=== PATIENT | male | born 1960 | race Caucasian/White ===

== ENCOUNTER 2017-02-15 10:14 | Outpatient (CLI) | payer OTHER | END 2017-02-15 10:15 | disposition home or self-care (01) | DX: E78.00 Pure hypercholesterolemia, unspecified (principal); R03.0 Elevated blood-pressure reading, without diagnosis of hypertension ==

== ENCOUNTER 2017-03-01 08:00 | Outpatient (CLI) | payer OTHER | END 2017-03-01 08:01 | disposition home or self-care (01) | DX: E78.2 Mixed hyperlipidemia (principal) ==

== ENCOUNTER 2017-05-10 08:03 | Outpatient (CLI) | payer OTHER ==
[2017-05-10 12:22] LABS: CHOL/HDL RATIO 5.6 (<5.0); CHOLESTEROL 156 mg/dL; HDL CHOLESTEROL 28 mg/dL; LDL/HDL RATIO 3.1 (<3.6); TRIGLYCERIDES 206 mg/dL; VLDL CHOLESTEROL 41 mg/dL
== END 2017-05-10 08:04 | disposition home or self-care (01) ==
LOC: LAB.F 08:03
PROVIDERS: ATTEND Internal Medicine
DX: E78.00 Pure hypercholesterolemia, unspecified (principal)
CPT/HCPCS: 36415; 80061; 84460

== ENCOUNTER 2017-10-17 14:16 | Outpatient (CLI) | payer OTHER ==
--- NOTE | 2017-10-22 11:05 | CARDIAC PROCEDURE NOTE ---
DATE OF SERVICE: 10/17/2017 PRIMARY CARE PROVIDER: Sienna Reynolds PA-C PROCEDURE: Stress echocardiogram. PROCEDURE SYMPTOMS: Chest pain experienced as tightness and burning throat and dyspnea on exertion. CARDIAC RISK FACTORS: Age, hypertension, and hyperlipidemia. No previous cardiac procedures. MEDICATIONS HELD: Metoprolol held for 3 doses by patient. CLINICAL HISTORY: A 57-year-old male without known coronary artery disease. INITIAL RESTING VITAL SIGNS: Blood pressure 144/96, heart rate 85, height 65 inches, weight 210 pounds, BMI 34.4. PROCEDURE AND FINDINGS: The patient's identity and date verified, consent signed. After resting echocardiogram images were obtained, the patient performed treadmill exercise using a Amadeo protocol, completing 9 minutes, 30 seconds and an estimated workload of 10.1 metabolic equivalents. Maximal blood pressure was 226/94 with a heart rate of 173 beats per minute or 106% of maximum predicted heart rate for age. The blood pressure response to exercise was abnormal due to extreme high blood pressure. The patient stopped because he rated exercise as very hard and target heart rate was achieved. The resting ECG demonstrated normal sinus rhythm with no abnormalities. There was 0.[address] segment depression and no ectopy. Post-exercise images were immediately obtained on cessation of exercise. FINAL IMPRESSION: 1. No ECG signs of ischemia, test incomplete, awaiting echocardiographic report. 2. Nondiagnostic stress test clinically for angina. The patient did have extremely dry-feeling throat and on his left side felt some pressure in his chest that was very mild. 3. No ectopy. 4. Hypertensive. TD: 10/18/2017 09:36 [facility]
== END 2017-10-17 14:17 | disposition home or self-care (01) ==
LOC: DI 14:16
PROVIDERS: ATTEND Physician Assistant Medical
DX: R94.31 Abnormal electrocardiogram [ECG] [EKG] (principal); I10 Essential (primary) hypertension; R07.89 Other chest pain; E78.5 Hyperlipidemia, unspecified
CPT/HCPCS: 93351

== ENCOUNTER 2018-03-28 06:01 | Day surgery (SDC) | payer OTHER ==
[2018-03-28] MEDS ORDERED: LACTATED RINGERS 1,000 ML IV ONE (07:17)
[2018-03-28] MEDS ORDERED: fentaNYL 250 MCG/5 ML VIAL IVP ONE (07:37)
[2018-03-28] MEDS ORDERED: MIDAZOLAM 2 MG/2 ML VIAL IVP ONE (07:37)
[2018-03-28 08:56] VITALS: BP 133/105
== END 2018-03-28 06:02 | disposition home or self-care (01) ==
LOC: SDS 06:01
PROVIDERS: ATTEND Surgery
PROC: 0DBP8ZX Excision of Rectum, Via Natural or Artificial Opening Endoscopic, Diagnostic (ICD-10-PCS; 2018-03-28)
PROC: 0DBM8ZX Excision of Descending Colon, Via Natural or Artificial Opening Endoscopic, Diagnostic (ICD-10-PCS; principal; 2018-03-28 07:30)
DX: Z12.11 Encounter for screening for malignant neoplasm of colon (principal); D12.4 Benign neoplasm of descending colon; D12.5 Benign neoplasm of sigmoid colon; K57.30 Diverticulosis of large intestine without perforation or abscess without bleeding; K64.8 Other hemorrhoids; K62.1 Rectal polyp; I10 Essential (primary) hypertension; K21.9 Gastro-esophageal reflux disease without esophagitis; Z79.82 Long term (current) use of aspirin
CPT/HCPCS: 45384; J3010; J7120

== ENCOUNTER 2018-07-02 08:33 | Outpatient (CLI) | payer OTHER ==
[2018-07-02 11:41] LABS: ALBUMIN 4.2 g/dL (3.2-5.5); ALBUMIN/GLOBULIN RATIO 1.6 (1.0-2.2); ALKALINE PHOSPHATASE 73 IU/L (42-121); ALT ALANINE AMINOTRANSFERASE 38 IU/L (10-60); AST ASPARTATE AMINOTRANSFERASE 31 IU/L (10-42); BILIRUBIN,TOTAL 1.2 mg/dL (0.2-1.0); BUN - BLOOD UREA NITROGEN 15 mg/dL (6-20); CALCIUM 8.8 mg/dL (8.5-10.3); CARBON DIOXIDE - CO2 24 mmol/L (21-32); CHLORIDE 104 mmol/L (101-111); CHOL/HDL RATIO 5.7 (<5.0); CHOLESTEROL 165 mg/dL; GFR - MDRD 77 (>89); GLUCOSE 101 mg/dL (70-100); HDL CHOLESTEROL 29 mg/dL; LDL CHOLESTEROL,CALCULATED 73 mg/dL; LDL/HDL RATIO 2.5 (<3.6); SODIUM 136 mmol/L (135-145); TOTAL PROTEIN 6.8 g/dL (6.7-8.2); VLDL CHOLESTEROL 63 mg/dL
== END 2018-07-02 08:34 | disposition home or self-care (01) ==
LOC: LAB.F 08:33
PROVIDERS: ATTEND Physician Assistant Medical
DX: I10 Essential (primary) hypertension (principal); E78.5 Hyperlipidemia, unspecified
CPT/HCPCS: 36415; 80053; 80061; 83721

== ENCOUNTER 2019-10-07 08:51 | Outpatient (CLI) | payer OTHER ==
[2019-10-07 17:08] LABS: BASOPHILS % (AUTO) 0.5 %; EOSINOPHILS # (AUTO) 0.4 10^3/uL (0.0-0.7); EOSINOPHILS % (AUTO) 6.4 %; HGB - HEMOGLOBIN 15.1 g/dL (14.0-18.0); LYMPHOCYTES # (AUTO) 1.4 10^3/uL (1.5-3.5); LYMPHOCYTES % (AUTO) 22.8 %; MEAN CORPUSCULAR HEMOGLOBIN 29.2 pg (27.0-31.0); MEAN CORPUSCULAR HGB CONC 33.4 g/dL (32.0-36.0); MEAN CORPUSCULAR VOLUME 87.4 fL (80.0-94.0); MEAN PLATELET VOLUME 11.2 fL (7.4-11.4); MONOCYTES # (AUTO) 0.6 10^3/uL (0.0-1.0); NEUTROPHILS # (AUTO) 3.8 10^3/uL (1.5-6.6); PLT - PLATELET COUNT 158 10^3/uL (130-450); RED BLOOD COUNT 5.17 10^6/uL (4.70-6.10); RED CELL DISTRIBUTION WIDTH 12.3 % (12.0-15.0); WHITE BLOOD COUNT 6.2 x10^3/uL (4.8-10.8)
[2019-10-07 18:03] LABS: ALBUMIN 4.3 g/dL (3.2-5.5); ALBUMIN/GLOBULIN RATIO 1.3 (1.0-2.2); ALKALINE PHOSPHATASE 92 IU/L (42-121); ALT ALANINE AMINOTRANSFERASE 49 IU/L (10-60); AST ASPARTATE AMINOTRANSFERASE 32 IU/L (10-42); BILIRUBIN,TOTAL 1.2 mg/dL (0.2-1.0); BUN - BLOOD UREA NITROGEN 18 mg/dL (6-20); CALCIUM 9.2 mg/dL (8.5-10.3); CARBON DIOXIDE - CO2 29 mmol/L (21-32); CHLORIDE 101 mmol/L (101-111); CHOL/HDL RATIO 8.2 (<5.0); CHOLESTEROL 246 mg/dL; GFR - MDRD 76 (>89); GLUCOSE 111 mg/dL (70-100); HDL CHOLESTEROL 30 mg/dL; SODIUM 137 mmol/L (135-145); TOTAL PROTEIN 7.5 g/dL (6.7-8.2)
[2019-10-07 18:37] LABS: LDL CHOLESTEROL,DIRECT 145 mg/dL; LDLD/HDL RATIO 4.8 (<3.6)
== END 2019-10-07 08:52 | disposition home or self-care (01) ==
LOC: LAB.S 08:51
PROVIDERS: ATTEND Physician Assistant Medical
DX: E78.5 Hyperlipidemia, unspecified (principal)
CPT/HCPCS: 36415; 80053; 80061; 83721; 85025

== ENCOUNTER 2021-05-30 12:32 | Emergency (ER) | payer OTHER ==
[2021-05-30] MEDS ORDERED: TETANUS/DIPHTHERIA/PERTUSSIS 0.5 ML SYRINGE IM ONE (13:02)
[2021-05-30] MEDS ORDERED: BUFFERED LIDOCAINE 10 ML SYRINGE SUBQ STA (13:02)
--- NOTE | 2021-05-30 13:03 | ED Physician Documentation ---
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 No other injuries. Tetanus is unknown. Review of Systems Constitutional: reports: Reviewed and negative Eyes: reports: Reviewed and negative Ears: reports: Reviewed and negative Nose: reports: Reviewed and negative PD PAST MEDICAL HISTORY - Past Medical History Past Medical History: Yes Cardiovascular: Hypertension, High cholesterol Respiratory: None Endocrine/Autoimmune: None GI: GERD, Colon polyps : None HEENT: None Psych: None Musculoskeletal: None Derm: None - Past Surgical History Past Surgical History: No General: Colonoscopy Ortho: Rotator cuff repair - Present Medications Home Medications: Ambulatory Orders Medication Instructions Recorded Confirmed HYDROcod/ACETAM 5/325 [Vicodin 1 - 2 ea PO Q6H PRN #15 tablet 05/03/13 5/325] Atorvastatin Calcium 40 mg PO DAILY 03/27/18 03/27/18 Metoprolol Succinate 25 mg PO DAILY 03/27/18 03/27/18 Pantoprazole [Protonix] 40 mg PO DAILY 03/27/18 03/27/18 Bacitracin Zinc Oint 1 applic TOP BID #1 gm 05/30/21 HYDROcod/ACETAM 5/325 [[place] 5/325] 1 - 2 tab PO Q6H PRN #7 tablet 05/30/21 - Allergies Allergies/Adverse Reactions: Allergies Allergy/AdvReac Type Severity Reaction Status Date / Time Egg Derived AdvReac Nausea Verified 05/30/21 12:41 - Social History Does the pt smoke?: No Smoking Status: Never smoker Does the pt drink ETOH?: No Does the pt have substance abuse?: No - Immunizations Immunizations are current?: No Immunizations: TDAP >10years/unknown PD ED PE NORMAL - Vitals Vital signs reviewed: Yes - General General: Alert and oriented X 3, No acute distress - Extremities Extremities: Other (Focused examination of the left small finger demonstrates that he has a laceration extending over the ulnar side of the tuft and then basically horizontally transects the nail and nailbed at the mid nail level. He has decreased sensation on the ulnar side but not the radial side of the tip ) - Neuro Neuro: Alert and oriented X 3, Normal speech Results - Vitals Vitals: Vital Signs - 24 hr 05/30/21 05/30/21 12:41 13:45 Temperature 36.5 C 97.6 C H Heart Rate 71 74 Respiratory 16 16 Rate Blood Pressure 132/102 H O2 Saturation 97 94 Oxygen O2 Source Room air - Rads (name of study) Left fifth finger x-ray was normal Radiology: EMP read contemporaneously Procedures - Laceration (location) L 5th finger Length in cm: 2 Wound type: Curved, Into subcut fat, Other (through nailbed) Neurovascular status: Motor intact Tendon involvement: Tendon intact Anesthesia: Lidocaine 1%, With bicarb Wound preparation: Irrigated copiously NS, Debrided extensively (distal fingernail removed bluntly) Skin layer closure: Other (nailbed closed with 3 x 5-0 vicryl interrupted and the skin on the ulnar side with 4 x 5-0 ethilon interrupted.) Other: Patient tolerated well, No complications, Neurovascular intact, Tetanus booster given Departure - Departure Disposition: Home, Self Care Clinical Impression: Nailbed laceration, finger, Laceration Condition: Good Record reviewed to determine appropriate education?: Yes Instructions: ED Laceration Hand Prescriptions: Bacitracin Zinc Oint 1 applic TOP BID #1 gm HYDROcod/ACETAM 5/325 [[place] 5/325] 1 - 2 tab PO Q6H PRN #7 tablet PRN Reason: Pain Comments: You can remove the dressing and wash it with soap and water as needed. Then blot it dry and apply the antibiotic ointment. Then apply a nonstick dressing such as "Telfa." And a wrap available at your pharmacy. Elevate. Sutures need to come out in about 2 weeks, at least a black ones on the side of the finger. Again the white fleshy colored sutures in the nailbed will dissolve on their own. You can follow-up with your doctor in 2 weeks for suture removal, and ideally also in 3 to 4 days for a wound check. Forms: Activity restrictions Discharge Date/Time: 05/30/21 14:17
[2021-05-30 13:46] VITALS: BP 132/102
--- NOTE | 2021-05-30 13:58 | XRAY Report ---
PROCEDURE: Finger(s) LT INDICATIONS: finger inj TECHNIQUE: AP hand, 2 views of the fifth digit acquired. COMPARISON: None. FINDINGS: Bones: No fractures or dislocations. No suspicious bony lesions. Soft tissues: No suspicious soft tissue calcifications. IMPRESSION: 1. No fracture or dislocation. Reviewed by: Ronen Lindsay MD on 05/30/2021 1:57 PM PDT Approved by: Ronen Lindsay MD on 05/30/2021 1:57 PM PDT Station ID: [id number]
== END 2021-05-30 14:17 | disposition home or self-care (01) ==
LOC: ED 12:32
DX: S61.317A Laceration without foreign body of left little finger with damage to nail, initial encounter (principal); W45.8XXA Other foreign body or object entering through skin, initial encounter; W22.8XXA Striking against or struck by other objects, initial encounter; Y93.89 Activity, other specified; Y99.0 Civilian activity done for income or pay
CPT/HCPCS: 12001; 90471; 99282; 99283

== ENCOUNTER 2021-08-28 10:00 | Outpatient (CLI) | payer OTHER ==
[2021-08-28 15:09] LABS: BILIRUBIN,URINE NEGATIVE (NEGATIVE); GLUCOSE, URINE (UA) NEGATIVE (NEGATIVE); KETONES,URINE (UA) NEGATIVE (NEGATIVE); LEUKOCYTE ESTERASE, URINE NEGATIVE (NEGATIVE); NITRITE,URINE NEGATIVE (NEGATIVE); OCCULT BLOOD,URINE LARGE (NEGATIVE); PROTEIN,URINE 30 mg/dL (NEGATIVE); UROBILINOGEN,URINE 0.2 (NORMAL) E.U./dL (NORMAL)
[2021-08-28 15:12] LABS: CLARITY,URINE CLEAR (CLEAR)
[2021-08-28 16:44] LABS: BACTERIA,URINE Few /HPF (None Seen); SQUAMOUS EPITHELIAL CELL,UR RARE Squamous (<= Few); WBC,URINE 0-3 /HPF (0-3)
[2021-08-28 16:45] LABS: CASTS, URINE 0-2 RBC Casts /LPF; YEAST,URINE PRESENT
== END 2021-08-28 23:59 | disposition home or self-care (01) ==
LOC: LAB.S 10:00
PROVIDERS: ATTEND Emergency Medicine
DX: N39.0 Urinary tract infection, site not specified (principal)
CPT/HCPCS: 81001; 87086

== ENCOUNTER 2021-11-15 02:21 | Outpatient (CLI) | payer OTHER | END 2021-11-15 02:22 | disposition critical access hospital (66) | LOC: EMS 02:21 | DX: R10.32 Left lower quadrant pain (principal) | CPT/HCPCS: A0425; A0427 ==

== ENCOUNTER 2021-11-15 02:55 | Inpatient (IN) | payer OTHER ==
[2021-11-15] MEDS ORDERED: SODIUM CHLORIDE 0.9% 1,000 ML IV STA ×2 (03:11→05:27)
[2021-11-15 03:39] LABS: BASOPHILS % (AUTO) 0.3 %; EOSINOPHILS # (AUTO) 0.2 10^3/uL (0.0-0.7); EOSINOPHILS % (AUTO) 1.4 %; HCT - HEMATOCRIT 38.7 % (42.0-52.0); HGB - HEMOGLOBIN 13.6 g/dL (14.0-18.0); LYMPHOCYTES % (AUTO) 7.4 %; MEAN CORPUSCULAR HEMOGLOBIN 30.3 pg (27.0-31.0); MEAN CORPUSCULAR HGB CONC 35.1 g/dL (32.0-36.0); MEAN CORPUSCULAR VOLUME 86.2 fL (80.0-94.0); MEAN PLATELET VOLUME 10.3 fL (7.4-11.4); MONOCYTES # (AUTO) 0.6 10^3/uL (0.0-1.0); MONOCYTES % (AUTO) 4.7 %; NEUTROPHILS # (AUTO) 11.4 10^3/uL (1.5-6.6); NEUTROPHILS % (AUTO) 85.9 %; PLT - PLATELET COUNT 147 10^3/uL (130-450); RED BLOOD COUNT 4.49 10^6/uL (4.70-6.10); RED CELL DISTRIBUTION WIDTH 11.9 % (12.0-15.0); WHITE BLOOD COUNT 13.3 x10^3/uL (4.8-10.8)
[2021-11-15 03:48] LABS: ALBUMIN 3.8 g/dL (3.2-5.5); ALBUMIN/GLOBULIN RATIO 1.3 (1.0-2.2); BILIRUBIN,TOTAL 1.1 mg/dL (0.2-1.0); CALCIUM 8.8 mg/dL (8.5-10.3); CREATININE 1.1 mg/dL (0.6-1.2); POTASSIUM 4.2 mmol/L (3.5-5.0); TOTAL PROTEIN 6.8 g/dL (6.7-8.2)
[2021-11-15 04:00] LABS: BILIRUBIN,URINE NEGATIVE (NEGATIVE); GLUCOSE, URINE (UA) NEGATIVE (NEGATIVE); KETONES,URINE (UA) NEGATIVE (NEGATIVE); LEUKOCYTE ESTERASE, URINE NEGATIVE (NEGATIVE); NITRITE,URINE NEGATIVE (NEGATIVE); OCCULT BLOOD,URINE SMALL (NEGATIVE); PH,URINE 5.5 PH (5.0-7.5); PROTEIN,URINE 30 mg/dL (NEGATIVE); UROBILINOGEN,URINE 0.2 (NORMAL) E.U./dL (NORMAL)
[2021-11-15] MEDS ORDERED: MORPHINE 2 MG/ML CARPUJECT IVP STA (04:07)
[2021-11-15] MEDS ORDERED: iohexoL-300 100 ML VIAL ONE (04:19)
[2021-11-15 04:25] LABS: CLARITY,URINE CLEAR (CLEAR)
[2021-11-15 04:26] LABS: BACTERIA,URINE None Seen /HPF (None Seen); RBC,URINE 0-5 /HPF (0-5); SQUAMOUS EPITHELIAL CELL,UR RARE Squamous (<= Few); WBC,URINE 0-3 /HPF (0-3)
[2021-11-15] MEDS ORDERED: iohexoL-300 100 ML VIAL IVP ONE (04:53)
[2021-11-15] MEDS ORDERED: PIPERACILLIN/TAZOBACTAM 3.375 GM in SODIUM CHLORIDE 0.9% MINIBAG 100 ML IV STA (05:19)
[2021-11-15] MEDS ORDERED: HYDROmorphone 1 MG/ML CARPUJECT IVP STA (05:30)
--- NOTE | 2021-11-15 05:33 | ED Physician Documentation ---
History of Present Illness - Stated complaint Stated Complaint: ABD PX - Chief complaint Chief Complaint: Abd Pain - History obtained from History obtained from: Patient - Additonal information Additional information: 61yM with pmh renal stones p/w sudden onset LLQ pain radiating to suprapubic region starting this past evening, sharp, 10/10 at onset, improving to 3/10 s/p 100 of fentanyl IV by EMS en route. patient denies fever, diarrhea, back pain, urinary sx. his pain was brought on immediately after having a BM. Review of Systems Ten Systems: 10 systems reviewed and negative Constitutional: denies: Fever, Chills GI: reports: Abdominal Pain. denies: Nausea, Vomiting, Constipation, Diarrhea, Bloody / black stool : denies: Dysuria, Frequency Musculoskeletal: denies: Back pain PD PAST MEDICAL HISTORY - Past Medical History Past Medical History: Yes Cardiovascular: Hypertension, High cholesterol Respiratory: None Neuro: None Endocrine/Autoimmune: None GI: GERD, Colon polyps : None HEENT: None Psych: None Musculoskeletal: None Derm: None - Past Surgical History Past Surgical History: Yes General: Colonoscopy Ortho: Rotator cuff repair - Present Medications Home Medications: Ambulatory Orders Medication Instructions Recorded Confirmed No Known Home Medications 11/15/21 11/15/21 - Allergies Allergies/Adverse Reactions: Allergies Allergy/AdvReac Type Severity Reaction Status Date / Time Egg Derived AdvReac Nausea Verified 05/30/21 12:41 - Social History Does the pt smoke?: No Smoking Status: Never smoker Does the pt drink ETOH?: No Does the pt have substance abuse?: No - Immunizations Immunizations are current?: No Immunizations: TDAP >10years/unknown - POLST Patient has POLST: No PD ED PE NORMAL - Vitals Vital signs reviewed: Yes - General General: Alert and oriented X 3, No acute distress, Well developed/nourished - HEENT HEENT: Atraumatic, PERRL, EOMI - Neck Neck: Supple, no meningeal sign - Cardiac Cardiac: RRR - Respiratory Respiratory: No respiratory distress, Clear bilaterally - Abdomen Abdomen: Other (ttp LLQ) - Back Back: No CVA TTP - Derm Derm: Normal color, Warm and dry - Extremities Extremities: No deformity - Neuro Neuro: Alert and oriented X 3, No motor deficit, No sensory deficit - Psych Psych: Normal mood, Normal affect Results - Vitals Vitals: Vital Signs - 24 hr 11/15/21 11/15/21 11/15/21 03:00 04:20 04:51 Temperature 36.1 C L Heart Rate 83 81 85 Respiratory 18 16 15 Rate Blood Pressure 125/90 H 143/93 H 140/96 H O2 Saturation 95 99 95 11/15/21 05:43 Temperature 37.1 C Heart Rate 82 Respiratory 16 Rate Blood Pressure 137/95 H O2 Saturation 96 Oxygen O2 Source Room air - Labs Labs: Laboratory Tests 11/15/21 11/15/21 11/15/21 03:31 03:31 03:40 WBC 13.3 H RBC 4.49 L Hgb 13.6 L Hct 38.7 L MCV 86.2 MCH 30.3 MCHC 35.1 RDW 11.9 L Plt Count 147 MPV 10.3 Neut # (Auto) 11.4 H Lymph # (Auto) 1.0 L Loving # (Auto) 0.6 Eos # (Auto) 0.2 Baso # (Auto) 0.0 Absolute Nucleated RBC 0.00 Nucleated RBC % 0.0 Sodium 136 Potassium 4.2 Chloride 102 Carbon Dioxide 24 Anion Gap 10.0 BUN 15 Creatinine 1.1 Estimated GFR (MDRD) 68 L Glucose 197 H Calcium 8.8 Total Bilirubin 1.1 H AST 22 ALT 34 Alkaline Phosphatase 60 Total Protein 6.8 Albumin 3.8 Globulin 3.0 Albumin/Globulin Ratio 1.3 Lipase 32 Urine Color YELLOW Urine Clarity CLEAR Urine pH 5.5 Ur Specific [place] 1.025 Urine Protein 30 H Urine Glucose (UA) NEGATIVE Urine Ketones NEGATIVE Urine Occult Blood SMALL H Urine Nitrite NEGATIVE Urine Bilirubin NEGATIVE Urine Urobilinogen 0.2 (NORMAL) Ur Leukocyte Esterase NEGATIVE Urine RBC 0-5 Urine WBC 0-3 Ur Squamous Epith Cells RARE Squamous Urine Bacteria None Seen Ur Microscopic Review INDICATED Urine Culture Comments NOT INDICATED PD MEDICAL DECISION MAKING - ED course ED course: patient with diverticulitis with microperforaton and free fluid in LLQ. d/w surgeon correctional nurse Dr. Jayashree Lam who will come evaluate. Dr. Lam recommending medical admission with surgery consulting in. d/w Dr. Topete for admission. Departure - Departure Disposition: 66 [facility] DC/Xfer Clinical Impression: Diverticulitis, Free fluid in pelvis, Free intraperitoneal air Condition: Stable
[2021-11-15] MEDS ORDERED: LACTATED RINGERS 1,000 ML IV SCH (07:00)
--- NOTE | 2021-11-15 07:06 | CONSULTATION NOTE ---
Referring Provider Consult Date: 11/15/21 Chief Complaint - Chief Complaint Chief Complaint: abdominal pain History of Present Illness - History of Present Illness HPI Comment/Other: Pt is a 61 yo M with hx HTN, HLD, colon polyps who presents with abdominal pain for last day. Reports was at work yesterday and felt a twinge in L lower abdomen; believed he had bumped it on something. At ~1:30 am this morning pt wilfred to have BM which was normal but exacerbated his pain severely, prompting presentation. Pain started in LLQ, extends like a band to RLQ. Some assx nausea and light headedness when pain first was exacerbated. He has never had similar episodes in the past. Of note, pt has had multiple colonoscopies, each finding some polyps, per pt these were never cancerous; believes he is due for a scope in the next couple of years (gets them every 5 yrs). In ED pt is feeling slightly better. He is afebrile, HDS. WBC 13; BG 190s; otherwise ok. CT showing thickened sigmoid with small foci of free air and fluid, no abscess. History - Past Medical History Cardiovascular: reports: Hypertension, High cholesterol Respiratory: reports: None Neuro: reports: None Endocrine/Autoimmune: reports: None GI: reports: GERD, Colon polyps : reports: None HEENT: reports: None Psych: reports: None Musculoskeletal: reports: None Derm: reports: None MRSA Hx?: No - Past Surgical History General: reports: Colonoscopy (multiple polyps found), Other (open inguinal hernia repair) Ortho: reports: Rotator cuff repair - Family & Social History Family History: Sister: Cancer (breast [place]) Living arrangement: At home Living Situation: With spouse/s.o. - Substance History Use: Uses substance without health or social issues: NONE - POLST Patient has POLST: No Meds/Allgy - Home Medications Home Medications: Ambulatory Orders Medication Instructions Recorded Confirmed No Known Home Medications 11/15/21 11/15/21 - Allergies Allergies/Adverse Reactions: Allergies Allergy/AdvReac Type Severity Reaction Status Date / Time Egg Derived AdvReac Nausea Verified 05/30/21 12:41 Review of Systems - Constitutional Constitutional: denies: Fever - Gastrointestinal Gastrointestinal: reports: Abdominal pain. denies: Black stools, Bloody stools - All Other Systems All Other Systems: reports: Reviewed and negative Exam - Vital Signs Reviewed Vital Signs: Yes Vital Signs: Vital Signs x48h Temp Pulse Resp BP Pulse Ox 11/15/21 06:33 84 15 139/98 H 96 11/15/21 05:43 37.1 C 82 16 137/95 H 96 11/15/21 04:51 85 15 140/96 H 95 11/15/21 04:20 81 16 143/93 H 99 11/15/21 03:00 36.1 C L 83 18 125/90 H 95 - Physical Exam General Appearance: positive: No acute distress, Alert Eyes Bilateral: positive: EOMI ENT: positive: No signs of dehydration Respiratory: positive: No respiratory distress Cardiovascular: positive: Regular rate & rhythm Abdomen: positive: Other (obese, soft, mildly distended, moderate TTP in LLQ; some TTP in RLQ referred to LLQ, rest of abdomen soft and non-tender, no rebound or guarding) Rectal: positive: Non-tender, Other (small amt soft brown stool on glove, no blood) Skin: positive: No rash, Warm, Dry Extremities: positive: No pedal edema Neurologic/Psychiatric: positive: Oriented x3, Mood/affect nml Conclusion/Plan - Lab Results Fish Bones: 11/15/21 03:31 11/15/21 03:31 - Diagnostic Imaging Results Diagnostic Imaging Results: positive: See rad report Diagnostic Imaging Results Comments: thickened sigmoid colon with small foci of free air and small amt of fluid - Other Other Results/Comments: 53 yo M with hx HTN, HLD, colon polyps presents with perforated diverticulitis. HDS, exam with focal TTP but not henrry peritonitis; WBC 13, BG 190s otherwise labs ok. Will attempt non-operative management. - admit to Medicine with surgical consultation - NPO/IVF - IV pain meds - broad abx (favor zosyn) - serial exams - discussed with patient that if he worsens (pain, sepsis, etc.) or fails to improve this would be considered a failure of non-op management and he may require surgical intervention, likely a Danica's procedure; if develops abscess may require drainage in futures - rest per Medicine Marcel Lam MD General Surgery
[2021-11-15] MEDS ORDERED: ACETAMINOPHEN 325 MG TABLET PO PRN (07:27)
[2021-11-15] MEDS ORDERED: MORPHINE 2 MG/ML CARPUJECT IVP PRN (07:27)
[2021-11-15] MEDS ORDERED: ONDANSETRON 4 MG/2 ML VIAL IVP PRN (07:27)
--- NOTE | 2021-11-15 07:35 | HISTORY & PHYSICAL EXAMINATION ---
Chief Complaint - Chief Complaint Chief Complaint: LLQ abdominal pain History of Present Illness - Admitted From Admitted From:: medical floor - History Obtained From Records Reviewed: [facility], ER notes History obtained from: pt Exam Limitations: no - History of Present Illness HPI Comment/Other: this a 61-yrs old male with a past medical history significant for HTN, HLD, colon polyps, kidney stones who presents ER to complain of abdominal pain. Pt arrives via EMS. He report he felt some discomfort on his low quadrant abdomen on yesterday afternoon when he was at work. On today [employer], he felt his abdominal pain severe after he had a bowel movement. he report he almost passed out because of pain. Then he sit at the floor but he had no fall and no injury. he Reports diaphoresis, nausea, and light headedness with abdominal pain without vomiting. He reported his abdominal pain mainly located at the left lower quadrant. He denies fever, chest pain, shortness of breath. After Pt was given 50mcg fentanyl X 2 en route to hospital, and given pain medication at ER, he felt his pain was reduced. Preliminary CT of abdomen/pelvis reveals Sigmoid Diverticulitis with microperforation and reactive inflammation change with a trace reactive free fluid, negative for abscess at this junction. Surgeon was consulted and recommended Medical management with NPO, IV fluids, pain control, and recommended Zosyn antibiotics. Given above medical conditions, Medical team was consulted for admission. discussed the care goal with pt, pt hope to have full code History - Past Medical History Cardiovascular: reports: Hypertension, High cholesterol Respiratory: reports: None Neuro: reports: None Endocrine/Autoimmune: reports: None GI: reports: GERD, Colon polyps : reports: None HEENT: reports: None Psych: reports: None Musculoskeletal: reports: None Derm: reports: None MRSA Hx?: No - Past Surgical History General: reports: Colonoscopy (multiple polyps found), Other (open inguinal hernia repair) Ortho: reports: Rotator cuff repair - Family & Social History Family History: Sister: Cancer (breast [place]) Family History Comment/Other: Patient report his mother at age 77 from stroke. His father is 83, lively, had pacemaker for bradycardia. Living arrangement: At home Living Situation: With spouse/s.o. Social History Notes: Patient denying history of cigarette smoking, alcohol or drug use - Substance History Use: Uses substance without health or social issues: NONE - POLST Patient has POLST: No Meds/Allgy - Home Medications Home Medications: Ambulatory Orders Medication Instructions Recorded Confirmed No Known Home Medications 11/15/21 11/15/21 - Allergies Allergies/Adverse Reactions: Allergies Allergy/AdvReac Type Severity Reaction Status Date / Time Egg Derived AdvReac Nausea Verified 05/30/21 12:41 Review of Systems - Constitutional Constitutional: reports: Diaphoresis. denies: Fever, Chills - Eyes Eyes: denies: Pain - Ears, Nose & Throat Ears, Nose & Throat: denies: Nosebleeds - Cardiovascular Cariovascular: reports: Lightheadedness. denies: Palpitations, Chest pain, Syncope, Exertional dyspnea, Decr. exercise tolerance - Respiratory Respiratory: denies: Cough, Wheezing, SOB at rest, SOB with exertion - Gastrointestinal Gastrointestinal: reports: Abdominal pain, Nausea. denies: Diarrhea, Vomiting - Genitourinary Genitourinary: denies: Dysuria - Musculoskeletal Musculoskeletal: denies: Muscle pain - Neurological Neurological: denies: Focal weakness, Dizziness, Numbness, Abnormal gait, Seizures, Incoordination, Slurred speech - Psychiatric Psychiatric: denies: Depression Exam - Vital Signs Vital Signs: Vital Signs x48h Temp Pulse Resp BP Pulse Ox 11/15/21 06:33 84 15 139/98 H 96 11/15/21 05:43 37.1 C 82 16 137/95 H 96 11/15/21 04:51 85 15 140/96 H 95 11/15/21 04:20 81 16 143/93 H 99 11/15/21 03:00 36.1 C L 83 18 125/90 H 95 - Physical Exam General Appearance: positive: No acute distress, Alert. negative: Lethargic Eyes Bilateral: positive: Normal inspection, No lid inflammation ENT: positive: ENT inspection nml Neck: positive: Nml inspection, Trachea midline. negative: Tracheal deviation Respiratory: positive: Chest non-tender, No respiratory distress, Breath sounds nml. negative: Wheezes Cardiovascular: positive: Regular rate & rhythm. negative: Tachycardia, Bradycardia, Systolic murmur Peripheral Pulses: positive: 2+ Abdomen: positive: Nml bowel sounds, No distention, Tenderness Back: positive: Nml inspection Skin: positive: Color nml, Warm, Dry. negative: Cyanosis Extremities: positive: Non-tender, Full ROM, Nml appearance Neurologic/Psychiatric: positive: Oriented x3, Motor nml, Sensation nml. negative: Weakness, Sensory loss, Facial droop, Slurred/abnml speech, Depressed mood/affect Conclusion/Plan - Problem List (1) Diverticulitis Conclusion/Plan: pt report LLQ abdominal pain. Preliminary CT of abdomen/pelvis reveals Sigmoid Diverticulitis with microperforation and reactive inflammation change with a trace reactive free fluid, negative for abscess at this junction. lab show elevated WBC at 13. surgeon was consulted. pt has afebrile, hemodynamic stable now. plan: NPO, IVF, antibiotics Zosyn, pain control, closely vital and lab monitor. blood culture is pending, continue consulting with surgeon, followup with image study as needed per prognosis. - Lab Results Fish Bones: 11/15/21 03:31 11/15/21 03:31 Core Measures - Anticipated LOS I expect patient to be DC'd or transferred within 96 hours.: Yes - DVT/VTE - Prophylaxis VTE/DVT Device ordered at admit?: Yes VTE/DVT Prophylaxis med ordered at admit?: Yes
[2021-11-15 08:12] LABS: B. PARAPERTUSSIS- RESP PCR PAN NOT DETECTED; B. PERTUSSIS- RESP PCR PANEL NOT DETECTED; C. PNEUMONIAE- RESP PCR PANEL NOT DETECTED; CORONAVIRUS 229E-RESP PCR NOT DETECTED; CORONAVIRUS HKU1-RESP PCR NOT DETECTED; CORONAVIRUS NL63-RESP PCR NOT DETECTED; CORONAVIRUS OC43-RESP PCR NOT DETECTED; HUMAN METAPNEUMOVIRUS NOT DETECTED; INFLUENZA A- RESP PCR PANEL NOT DETECTED; INFLUENZA B - RESP PCR PANEL NOT DETECTED; M. PNEUMONIAE- RESP PCR PANEL NOT DETECTED; PARAINFLUENZA VIRUS 1 NOT DETECTED; PARAINFLUENZA VIRUS 2 NOT DETECTED; PARAINFLUENZA VIRUS 3 NOT DETECTED; PARAINFLUENZA VIRUS 4 NOT DETECTED; RHINOVIRUS/ENTEROVIRUS NOT DETECTED; RSV- RESP PCR PANEL NOT DETECTED; SARS-CoV-2 -RESP PCR PANEL NOT DETECTED
--- NOTE | 2021-11-15 08:46 | CT Report ---
PROCEDURE: Abdomen/Pelvis W INDICATIONS: sudden sharp intermit LLQ pain, hx kid stones CONTRAST: IV CONTRAST: Isovue 300 ml: 100 PO CONTRAST: *NO PO CONTRAST TECHNIQUE: After the administration of intravenous contrast, 5 mm thick sections acquired from the diaphragms to the symphysis. 5 mm thick coronal and sagittal reformats were acquired. For radiation dose reducti on, the following was used: automated exposure control, adjustment of mA and/or kV according to anid ent size. COMPARISON: None. FINDINGS: Inferior chest: No focal consolidation, pleural effusion, or pneumothorax. No cardiomegaly or perica rdial effusion. Small hiatal hernia. Gallbladder: The gallbladder is distended with a smooth thin wall. Biliary tree: No intra-or extrahepatic biliary ductal dilatation. Liver: The liver demonstrates normal enhancement, size, and contour. Decreased attenuation, which may reflect hepatic steatosis. Scattered hypoattenuating lesions are seen throughout the liver, measurin g up to 1.5 cm, which may reflect cysts. Spleen: Normal enhancement, size and morphology is seen. Pancreas: No contour deforming mass or inflammatory change. Adrenals: Normal size without masses. Kidneys/ureters: Normal size and morphology. No solid masses or hydronephrosis. Vasculature: No evidence of aneurysm or other significant vascular pathology. Lymphatic system: No pathologic enlargement by size criteria. GI/mesentery: No evidence of intestinal obstruction. Descending/sigmoid diverticulosis with a segment of wall thickening and inflammatory change in the sigmoid colon, compatible with acute diverticuliti s. Small foci of free intraperitoneal gas are seen, compatible with microperforation. Peritoneum/Retroperitoneum: No drainable collection. Urinary bladder: The urinary bladder is distended with a smooth thin wall. Pelvic organs: Enlargement of the prostate measuring 4.9 cm in transverse dimension. Bones/soft tissues: Multifocal degenerative change. IMPRESSION: 1.Acute sigmoid diverticulitis with microperforation as detailed above. Concordant interpretation with the preliminary report. Reviewed by: Edmundo Ragland MD on 11/15/2021 8:[address] [facility] Approved by: Edmundo Ragland MD on 11/15/2021 8:[address] [facility] Station ID: [id number]
[2021-11-15] MEDS ORDERED: ENOXAPARIN 40 MG/0.4 ML SYRINGE SUBQ ONE (09:00)
[2021-11-15] MEDS: HYDROmorphone 1 MG/ML CARPUJECT IVP PRN ×3 (09:15→21:39)
[2021-11-15] MEDS ORDERED: PIPERACILLIN/TAZOBACTAM 3.375 GM in SODIUM CHLORIDE 0.9% MINIBAG 100 ML IV ONE (09:30)
[2021-11-15] MEDS: PIPERACILLIN/TAZOBACTAM 3.375 GM in SODIUM CHLORIDE 0.9% MINIBAG 100 ML IV SCH ×4 (10:17→18:48)
[2021-11-15] MEDS: SODIUM CHLORIDE FLUSH 0.9% 10 ML SYRINGE IVP SCH ×2 (10:24→14:43)
[2021-11-15] MEDS: SODIUM CHLORIDE 0.9% 1,000 ML IV SCH (14:47)
[2021-11-15] MEDS: SODIUM CHLORIDE FLUSH 0.9% 10 ML SYRINGE IVP PRN (21:39)
[2021-11-16] MEDS: SODIUM CHLORIDE 0.9% 1,000 ML IV SCH ×3 (00:11→21:57)
[2021-11-16] MEDS: SODIUM CHLORIDE FLUSH 0.9% 10 ML SYRINGE IVP SCH ×4 (01:17→23:27)
[2021-11-16] MEDS: PIPERACILLIN/TAZOBACTAM 3.375 GM in SODIUM CHLORIDE 0.9% MINIBAG 100 ML IV SCH ×3 (02:17→18:51)
[2021-11-16] MEDS: HYDROmorphone 1 MG/ML CARPUJECT IVP PRN ×5 (03:47→22:01)
[2021-11-16 06:40] LABS: BASOPHILS % (AUTO) 0.2 %; EOSINOPHILS # (AUTO) 0.1 10^3/uL (0.0-0.7); EOSINOPHILS % (AUTO) 0.5 %; HCT - HEMATOCRIT 35.8 % (42.0-52.0); HGB - HEMOGLOBIN 12.3 g/dL (14.0-18.0); LYMPHOCYTES # (AUTO) 1.1 10^3/uL (1.5-3.5); LYMPHOCYTES % (AUTO) 10.8 %; MEAN CORPUSCULAR HEMOGLOBIN 30.4 pg (27.0-31.0); MEAN CORPUSCULAR HGB CONC 34.4 g/dL (32.0-36.0); MEAN CORPUSCULAR VOLUME 88.6 fL (80.0-94.0); MEAN PLATELET VOLUME 11.1 fL (7.4-11.4); MONOCYTES # (AUTO) 0.6 10^3/uL (0.0-1.0); MONOCYTES % (AUTO) 5.6 %; NEUTROPHILS # (AUTO) 8.2 10^3/uL (1.5-6.6); NEUTROPHILS % (AUTO) 82.5 %; PLT - PLATELET COUNT 132 10^3/uL (130-450); RED BLOOD COUNT 4.04 10^6/uL (4.70-6.10); RED CELL DISTRIBUTION WIDTH 12.1 % (12.0-15.0)
[2021-11-16 06:45] LABS: CALCIUM 8.1 mg/dL (8.5-10.3); POTASSIUM 3.7 mmol/L (3.5-5.0)
[2021-11-16] MEDS ORDERED: D5.45NS W/20 MEQ KCL 1,000 ML IV SCH (08:00)
[2021-11-16] MEDS: ENOXAPARIN 40 MG/0.4 ML SYRINGE SUBQ SCH (08:22)
--- NOTE | 2021-11-16 08:25 | PROVIDER PROGRESS NOTE ---
Subjective - General Admit Date: 11/15/21 - Review of Systems General: positive: No symptoms. negative: Fever HEENT: positive: Headaches Pulmonary: positive: No symptoms Cardiovascular: positive: No symptoms Gastrointestinal: positive: Abdominal pain, Flatus Genitourinary: positive: No symptoms All Other Systems: positive: Reviewed and negative - Other Other Information/Narrative: Mr. Jose sierra says he is feeling worse today. He said yesterday was a good day and he went to sleep without taking much pain medicine. Now he feels like he is about to have a bowel movement and the pain is significantly worse. His white count is down this morning. He has been afebrile. He has been passing small amounts of flatus.That he does not generally have difficulty with constipation but that over the last couple of years he has been more constipated than he has in the past. He does have a history of colon polyps and feels that he is probably due for his colonoscopy. He tells me he would do anything not to go through this experience again. Objective - Patient Data Reviewed Vital Signs: Yes Vital Signs: Vital Signs x48h Temp Pulse Resp BP Pulse Ox 11/16/21 08:00 36.8 C 84 18 132/85 H 94 Weight: Weight 11/14/21 11/15/21 11/16/21 23:59 23:59 23:59 Weight (kg) 97 kg Intake & Output: Intake and Output Totals x24h 11/14/21 11/15/21 11/16/21 23:59 23:59 23:59 Intake Total 3646.673 256.667 Output Total 1100 550 Balance 2546.673 -293.333 - Lab Results Lab Results: 11/16/21 06:06 11/16/21 06:06 Other Lab Results: Lab Results x24hrs 11/16/21 11/16/21 Range/Units 06:06 06:06 WBC 10.0 (4.8-10.8) x10^3/uL RBC 4.04 L (4.70-6.10) 10^6/uL Hgb 12.3 L (14.0-18.0) g/dL Hct 35.8 L (42.0-52.0) % MCV 88.6 (80.0-94.0) fL MCH 30.4 (27.0-31.0) pg MCHC 34.4 (32.0-36.0) g/dL RDW 12.1 (12.0-15.0) % Plt Count 132 (130-450) 10^3/uL MPV 11.1 (7.4-11.4) fL Neut # (Auto) 8.2 H (1.5-6.6) 10^3/uL Lymph # (Auto) 1.1 L (1.5-3.5) 10^3/uL [place] # (Auto) 0.6 (0.0-1.0) 10^3/uL Eos # (Auto) 0.1 (0.0-0.7) 10^3/uL Baso # (Auto) 0.0 (0.0-0.1) 10^3/uL Absolute Nucleated RBC 0.00 x10^3/uL Nucleated RBC % 0.0 /100WBC Sodium 137 (135-145) mmol/L Potassium 3.7 (3.5-5.0) mmol/L Chloride 103 (101-111) mmol/L Carbon Dioxide 25 (21-32) mmol/L Anion Gap 9.0 (6-13) BUN 14 (6-20) mg/dL Creatinine 1.0 (0.6-1.2) mg/dL Estimated GFR (MDRD) 76 L (>89) Glucose 111 H (70-100) mg/dL Calcium 8.1 L (8.5-10.3) mg/dL - Current Medications Current Medications: Current Medications Generic Name Dose Route Start Last Admin Trade Name Freq PRN Reason Stop Dose Admin Hydromorphone HCl 1 mg 11/15/21 06:53 11/16/21 03:47 Hydromorphone 1 Mg/Ml Carpuject IVP 1 mg Q2HR PRN Administration PAIN Piperacillin Sod/Tazobactam 100 mls @ 25 mls/hr 11/15/21 18:00 11/16/21 06:17 Sod 3.375 gm/ Sodium Chloride IV Infused Q8H NAUN Infusion Sodium Chloride 10 ml 11/15/21 07:27 11/15/21 21:39 Sodium Chloride Flush 0.9% 10 Ml Syringe IVP 10 ml PRN PRN Administration NEEDED PER PROVIDER ORDERS Sodium Chloride 10 ml 11/15/21 09:00 11/16/21 01:17 Sodium Chloride Flush 0.9% 10 Ml Syringe IVP Not Given 0100,0900,1700 NAUN - Physical Exam Abdomen: positive: Tenderness, Guarding, Other (His abdomen is mildly distended. He does have some guarding in the left lower quadrant but no true rebound.). negative: Rebound Back: positive: Nml inspection Skin: positive: Color nml ABX Reporting Has patient been on IV antibiotics over the past 48 hours?: Yes Impression/Plan - Problem List Problem List: Perforated diverticulitis in the setting of a gentleman with health problems that are relatively well managed. Other than the increase in pain today, he appears to be making good progress. If he has a bowel movement today, we can advance his diet. Hopefully he will continue to go in the right direction. Assuming he does, he will need a colonoscopy in 6 to 8 weeks.If not, we can always reconsider surgical options.
--- NOTE | 2021-11-16 09:21 | PHARMACY PROGRESS NOTE ---
- Best Possible Medication History Admit Date and Time: 11/15/21 0650 Processed by: Nursing Medication History completed: Yes Patient Interview: Completed As the person ultimately responsible for medication therapy, providers are able to order a medication from an existing home medication list in [facility] via the "Reconcile Routine" prior to Confirmation of that medication by support clerk. Such practice is discouraged except when the physician, in their clinical judg ment, deems that a medical need exists for a medication without regard to previous use.
--- NOTE | 2021-11-16 13:54 | PROVIDER PROGRESS NOTE ---
Assessment/Plan - Problem List (1) Diverticulitis Assessment/Plan: 11/16 pt report he still has abdominal LLQ pain but pain is reduced, he feel he will have bowel movement but has no bowel movement yet. he is comfortable rest in the bed. he has no fever. continue NPO, IVF, glucose check, pain control, and IV of Zosyn, surgeon is on the board consulting for pt. pt report LLQ abdominal pain. Preliminary CT of abdomen/pelvis reveals Sigmoid Diverticulitis with microperforation and reactive inflammation change with a trace reactive free fluid, negative for abscess at this junction. lab show elevated WBC at 13. surgeon was consulted. pt has afebrile, hemodynamic stable now. plan: NPO, IVF, antibiotics Zosyn, pain control, closely vital and lab monitor. blood culture is pending, continue consulting with surgeon, followup with image study as needed per prognosis. - Current Meds Current Meds: Current Medications Generic Name Dose Route Start Last Admin Trade Name Freq PRN Reason Stop Dose Admin Enoxaparin Sodium 40 mg 11/16/21 09:00 11/16/21 08:22 Enoxaparin 40 Mg/0.4 Ml Syringe SUBQ 40 mg DAILY NAUN Administration Hydromorphone HCl 1 mg 11/15/21 06:53 11/16/21 08:23 Hydromorphone 1 Mg/Ml Carpuject IVP 1 mg Q2HR PRN Administration PAIN Piperacillin Sod/Tazobactam 100 mls @ 25 mls/hr 11/15/21 18:00 11/16/21 11:10 Sod 3.375 gm/ Sodium Chloride IV 25 mls/hr Q8H NAUN Administration Sodium Chloride 1,000 mls @ 100 mls/hr 11/16/21 12:00 11/16/21 11:39 Normal Saline 0.9% IV 100 mls/hr .Q10H NAUN Administration Sodium Chloride 10 ml 11/15/21 07:27 11/15/21 21:39 Sodium Chloride Flush 0.9% 10 Ml Syringe IVP 10 ml PRN PRN Administration NEEDED PER PROVIDER ORDERS Sodium Chloride 10 ml 11/15/21 09:00 11/16/21 08:22 Sodium Chloride Flush 0.9% 10 Ml Syringe IVP 10 ml 0100,0900,1700 NAUN Administration - Lab Result Fish Bone Diagrams: 11/16/21 06:06 11/16/21 06:06 - Additional Planning My Orders: My Active Orders 11/15/21 18:00 Piperacillin/Tazobactam [Zosyn] 3.375 gm Sodium Chloride 0.9% Minibag [Normal Saline 0.9% Minibag] 100 ml IV Q8H 11/16/21 09:00 Enoxaparin [Lovenox] 40 mg SUBQ DAILY 11/16/21 11:24 Blood Glucose Checks - NPO [RC] 0600,1200,1800,0000 11/16/21 12:00 Sodium Chloride 0.9% [Normal Saline 0.9%] 1,000 ml IV 100 mls/hr 11/17/21 05:00 BMP - BASIC METABOLIC PANEL [CHEM] DAILYLAB CBC - COMP BLD CT W/AUTO DIFF [HEME] DAILYLAB 11/18/21 05:00 BMP - BASIC METABOLIC PANEL [CHEM] DAILYLAB CBC - COMP BLD CT W/AUTO DIFF [HEME] DAILYLAB 11/19/21 05:00 BMP - BASIC METABOLIC PANEL [CHEM] DAILYLAB CBC - COMP BLD CT W/AUTO DIFF [HEME] DAILYLAB 11/20/21 05:00 BMP - BASIC METABOLIC PANEL [CHEM] DAILYLAB CBC - COMP BLD CT W/AUTO DIFF [HEME] DAILYLAB Subjective - Subjective Patient Reports: Resting Comfortably Objective Vital Signs: Vital Signs - 24 hr 11/15/21 11/15/21 11/16/21 16:21 23:42 08:00 Temperature 37.5 C 37.2 C 36.8 C Heart Rate [ 80 85 84 Brachial] Respiratory 20 16 18 Rate Blood Pressure 138/73 H 126/72 132/85 H [Right Brachial artery] O2 Saturation 93 94 94 Oxygen O2 Source Room air I&O (Last 24 Hrs): Intake and Output Totals x24h 11/14/21 11/15/21 11/16/21 23:59 23:59 23:59 Intake Total 3646.673 1538.334 Output Total 1100 850 Balance 2546.673 688.334 General: Alert, Oriented x3, Cooperative, No acute distress HEENT: Atraumatic Neck: Supple Lymphatic: no adenopathy Neuro: Alert, Non Focal, Oriented Times 3 Cardiovascular: Regular rate, Normal S1, Normal S2 Respiratory: Chest non-tender, No respiratory distress Abdomen: Normal bowel sounds, Soft Extremities: Normal pulses - Results Results: Laboratory Results WBC 10.0 x10^3/uL (4.8-10.8) 11/16/21 06:06 RBC 4.04 10^6/uL (4.70-6.10) L 11/16/21 06:06 Hgb 12.3 g/dL (14.0-18.0) L 11/16/21 06:06 Hct 35.8 % (42.0-52.0) L 11/16/21 06:06 MCV 88.6 fL (80.0-94.0) 11/16/21 06:06 MCH 30.4 pg (27.0-31.0) 11/16/21 06:06 MCHC 34.4 g/dL (32.0-36.0) 11/16/21 06:06 RDW 12.1 % (12.0-15.0) 11/16/21 06:06 Plt Count 132 10^3/uL (130-450) 11/16/21 06:06 MPV 11.1 fL (7.4-11.4) 11/16/21 06:06 Neut # (Auto) 8.2 10^3/uL (1.5-6.6) H 11/16/21 06:06 Lymph # (Auto) 1.1 10^3/uL (1.5-3.5) L 11/16/21 06:06 [place] # (Auto) 0.6 10^3/uL (0.0-1.0) 11/16/21 06:06 Eos # (Auto) 0.1 10^3/uL (0.0-0.7) 11/16/21 06:06 Baso # (Auto) 0.0 10^3/uL (0.0-0.1) 11/16/21 06:06 Absolute Nucleated RBC 0.00 x10^3/uL 11/16/21 06:06 Nucleated RBC % 0.0 /100WBC 11/16/21 06:06 Sodium 137 mmol/L (135-145) 11/16/21 06:06 Potassium 3.7 mmol/L (3.5-5.0) 11/16/21 06:06 Chloride 103 mmol/L (101-111) 11/16/21 06:06 Carbon Dioxide 25 mmol/L (21-32) 11/16/21 06:06 Anion Gap 9.0 (6-13) 11/16/21 06:06 BUN 14 mg/dL (6-20) 11/16/21 06:06 Creatinine 1.0 mg/dL (0.6-1.2) 11/16/21 06:06 Estimated GFR (MDRD) 76 (>89) L 11/16/21 06:06 Glucose 111 mg/dL (70-100) H 11/16/21 06:06 Lactic Acid 1.4 mmol/L (0.5-2.2) 11/15/21 06:15 Calcium 8.1 mg/dL (8.5-10.3) L 11/16/21 06:06 Total Bilirubin 1.1 mg/dL (0.2-1.0) H 11/15/21 03:31 AST 22 IU/L (10-42) 11/15/21 03:31 ALT 34 IU/L (10-60) 11/15/21 03:31 Alkaline Phosphatase 60 IU/L (42-121) 11/15/21 03:31 Total Protein 6.8 g/dL (6.7-8.2) 11/15/21 03:31 Albumin 3.8 g/dL (3.2-5.5) 11/15/21 03:31 Globulin 3.0 g/dL (2.1-4.2) 11/15/21 03:31 Albumin/Globulin Ratio 1.3 (1.0-2.2) 11/15/21 03:31 Lipase 32 U/L (22-51) 11/15/21 03:31 Urine Color YELLOW 11/15/21 03:40 Urine Clarity CLEAR (CLEAR) 11/15/21 03:40 Urine pH 5.5 PH (5.0-7.5) 11/15/21 03:40 Ur Specific [place] 1.025 (1.002-1.030) 11/15/21 03:40 Urine Protein 30 mg/dL (NEGATIVE) H 11/15/21 03:40 Urine Glucose (UA) NEGATIVE mg/dL (NEGATIVE) 11/15/21 03:40 Urine Ketones NEGATIVE mg/dL (NEGATIVE) 11/15/21 03:40 Urine Occult Blood SMALL (NEGATIVE) H 11/15/21 03:40 Urine Nitrite NEGATIVE (NEGATIVE) 11/15/21 03:40 Urine Bilirubin NEGATIVE (NEGATIVE) 11/15/21 03:40 Urine Urobilinogen 0.2 (NORMAL) E.U./dL (NORMAL) 11/15/21 03:40 Ur Leukocyte Esterase NEGATIVE (NEGATIVE) 11/15/21 03:40 Urine RBC 0-5 /HPF (0-5) 11/15/21 03:40 Urine WBC 0-3 /HPF (0-3) 11/15/21 03:40 Ur Squamous Epith Cells RARE Squamous (<= Few) 11/15/21 03:40 Urine Bacteria None Seen /HPF (None Seen) 11/15/21 03:40 Ur Microscopic Review INDICATED 11/15/21 03:40 Urine Culture Comments NOT INDICATED 11/15/21 03:40 Nasal Adenovirus (PCR) NOT DETECTED 11/15/21 06:19 Nasal B. parapertussis DNA (PCR) NOT DETECTED 11/15/21 06:19 Nasal Coronavir 229E PCR NOT DETECTED 11/15/21 06:19 Nasal Coronavir HKU1 PCR NOT DETECTED 11/15/21 06:19 Nasal Coronavir NL63 PCR NOT DETECTED 11/15/21 06:19 Nasal Coronavir OC43 PCR NOT DETECTED 11/15/21 06:19 Nasal Enterovir/Rhinovir PCR NOT DETECTED 11/15/21 06:19 Nasal Influenza B PCR NOT DETECTED 11/15/21 06:19 Nasal Influenza A PCR NOT DETECTED 11/15/21 06:19 Nasal Parainfluen 1 PCR NOT DETECTED 11/15/21 06:19 Nasal Parainfluen 2 PCR NOT DETECTED 11/15/21 06:19 Nasal Parainfluen 3 PCR NOT DETECTED 11/15/21 06:19 Nasal Parainfluen 4 PCR NOT DETECTED 11/15/21 06:19 Nasal RSV (PCR) NOT DETECTED 11/15/21 06:19 Nasal B.pertussis DNA PCR NOT DETECTED 11/15/21 06:19 Nasal C.pneumoniae (PCR) NOT DETECTED 11/15/21 06:19 [place] Human Metapneumo PCR NOT DETECTED 11/15/21 06:19 Nasal M.pneumoniae (PCR) NOT DETECTED 11/15/21 06:19 Nasal SARS-CoV-2 (PCR) NOT DETECTED 11/15/21 06:19 - Procedures Procedures: Procedures ENDOSC POLYPECTOMY OF LG INTEST (04/21/13) EXCISION OF DESCENDING COLON, ENDO, DIAGN (03/28/18) EXCISION OF RECTUM, ENDO, DIAGN (03/28/18) ROTATOR CUFF REPAIR (06/11/13) ABX Reporting Has patient been on IV antibiotics over the past 48 hours?: Yes Current Medications - Current Medications Current Medications: Active Medications Acetaminophen (Acetaminophen 325 Mg Tablet) 650 mg PO Q4HR PRN PRN Reason: Pain 1 to 4 Enoxaparin Sodium (Enoxaparin 40 Mg/0.4 Ml Syringe) 40 mg SUBQ DAILY [facility] Last Admin: 11/16/21 08:22 Dose: 40 mg Hydromorphone HCl (Hydromorphone 1 Mg/Ml Carpuject) 1 mg IVP Q2HR PRN PRN Reason: PAIN Last Admin: 11/16/21 08:23 Dose: 1 mg Piperacillin Sod/Tazobactam (Sod 3.375 gm/ Sodium Chloride) 100 mls @ 25 mls/hr IV Q8H [facility] Last Admin: 11/16/21 11:10 Dose: 25 mls/hr Sodium Chloride (Normal Saline 0.9%) 1,000 mls @ 100 mls/hr IV .Q10H [facility] Last Admin: 11/16/21 11:39 Dose: 100 mls/hr Ondansetron HCl (Ondansetron 4 Mg/2 Ml Vial) 4 mg IVP Q6HR PRN PRN Reason: Nausea / Vomiting Sodium Chloride (Sodium Chloride Flush 0.9% 10 Ml Syringe) 10 ml IVP PRN PRN PRN Reason: NEEDED PER PROVIDER ORDERS Last Admin: 11/15/21 21:39 Dose: 10 ml Sodium Chloride (Sodium Chloride Flush 0.9% 10 Ml Syringe) 10 ml IVP 0100,0900,1700 [facility] Last Admin: 11/16/21 08:22 Dose: 10 ml No Known Home Medications 11/15/21
[2021-11-16] MEDS: SODIUM CHLORIDE FLUSH 0.9% 10 ML SYRINGE IVP PRN (19:01)
[2021-11-16] MEDS: D5.45NS W/20 MEQ KCL 1,000 ML IV SCH (23:45)
[2021-11-17] MEDS: PIPERACILLIN/TAZOBACTAM 3.375 GM in SODIUM CHLORIDE 0.9% MINIBAG 100 ML IV SCH ×3 (02:25→19:06)
[2021-11-17] MEDS: D5.45NS W/20 MEQ KCL 1,000 ML IV SCH ×2 (06:21→16:10)
[2021-11-17 06:30] LABS: BASOPHILS % (AUTO) 0.2 %; EOSINOPHILS # (AUTO) 0.1 10^3/uL (0.0-0.7); EOSINOPHILS % (AUTO) 1.3 %; HCT - HEMATOCRIT 33.9 % (42.0-52.0); HGB - HEMOGLOBIN 11.7 g/dL (14.0-18.0); LYMPHOCYTES # (AUTO) 1.1 10^3/uL (1.5-3.5); LYMPHOCYTES % (AUTO) 12.9 %; MEAN CORPUSCULAR HEMOGLOBIN 30.5 pg (27.0-31.0); MEAN CORPUSCULAR HGB CONC 34.5 g/dL (32.0-36.0); MEAN CORPUSCULAR VOLUME 88.3 fL (80.0-94.0); MEAN PLATELET VOLUME 11.3 fL (7.4-11.4); MONOCYTES # (AUTO) 0.5 10^3/uL (0.0-1.0); MONOCYTES % (AUTO) 5.5 %; NEUTROPHILS # (AUTO) 6.6 10^3/uL (1.5-6.6); NEUTROPHILS % (AUTO) 79.9 %; PLT - PLATELET COUNT 127 10^3/uL (130-450); RED BLOOD COUNT 3.84 10^6/uL (4.70-6.10); RED CELL DISTRIBUTION WIDTH 11.9 % (12.0-15.0); WHITE BLOOD COUNT 8.2 x10^3/uL (4.8-10.8)
[2021-11-17 06:33] LABS: CALCIUM 8.3 mg/dL (8.5-10.3); CREATININE 0.9 mg/dL (0.6-1.2); POTASSIUM 3.8 mmol/L (3.5-5.0)
--- NOTE | 2021-11-17 10:59 | PROVIDER PROGRESS NOTE ---
Assessment/Plan - Problem List (1) Diverticulitis Assessment/Plan: 11/17 pt report his abdominal pain is better, he did not take pain meds since last night. he report he passed couple of time gas but no bowel movement yet. after discuss with surgeon Dr. Girard, we will start with clear diet, continue Zosyn, IVF and pain control for pt. 11/16 pt report he still has abdominal LLQ pain but pain is reduced, he feel he will have bowel movement but has no bowel movement yet. he is comfortable rest in the bed. he has no fever. continue NPO, IVF, glucose check, pain control, and IV of Zosyn, surgeon is on the board consulting for pt. pt report LLQ abdominal pain. Preliminary CT of abdomen/pelvis reveals Sigmoid Diverticulitis with microperforation and reactive inflammation change with a trace reactive free fluid, negative for abscess at this junction. lab show elevated WBC at 13. surgeon was consulted. pt has afebrile, hemodynamic stable now. plan: NPO, IVF, antibiotics Zosyn, pain control, closely vital and lab monitor. blood culture is pending, continue consulting with surgeon, followup with image study as needed per prognosis. - Current Meds Current Meds: Current Medications Generic Name Dose Route Start Last Admin Trade Name Freq PRN Reason Stop Dose Admin Enoxaparin Sodium 40 mg 11/16/21 09:00 11/16/21 08:22 Enoxaparin 40 Mg/0.4 Ml Syringe SUBQ 40 mg DAILY NAUN Administration Hydromorphone HCl 1 mg 11/15/21 06:53 11/16/21 22:01 Hydromorphone 1 Mg/Ml Carpuject IVP 1 mg Q2HR PRN Administration PAIN Piperacillin Sod/Tazobactam 100 mls @ 25 mls/hr 11/15/21 18:00 11/17/21 06:29 Sod 3.375 gm/ Sodium Chloride IV Infused Q8H NAUN Infusion Potassium Chloride/Dextrose/Sod Cl 1,000 mls @ 100 mls/hr 11/16/21 23:45 11/17/21 06:21 D5.45ns W/20 Meq Kcl IV 100 mls/hr .Q10H NAUN Administration Ondansetron HCl 4 mg 11/15/21 07:27 11/17/21 00:28 Ondansetron 4 Mg/2 Ml Vial IVP 4 mg Q6HR PRN Administration Nausea / Vomiting Sodium Chloride 10 ml 11/15/21 07:27 11/16/21 19:01 Sodium Chloride Flush 0.9% 10 Ml Syringe IVP 10 ml PRN PRN Administration NEEDED PER PROVIDER ORDERS Sodium Chloride 10 ml 11/15/21 09:00 11/16/21 23:27 Sodium Chloride Flush 0.9% 10 Ml Syringe IVP Not Given 0100,0900,1700 NAUN - Lab Result Fish Bone Diagrams: 11/17/21 05:23 11/17/21 05:23 - Additional Planning My Orders: My Active Orders 11/16/21 11:24 Blood Glucose Checks - NPO [RC] 0600,1200,1800,0000 11/17/21 Lunch Clear Liquid Diet [DIET] 11/18/21 05:00 BMP - BASIC METABOLIC PANEL [CHEM] DAILYLAB CBC - COMP BLD CT W/AUTO DIFF [HEME] DAILYLAB 11/19/21 05:00 BMP - BASIC METABOLIC PANEL [CHEM] DAILYLAB CBC - COMP BLD CT W/AUTO DIFF [HEME] DAILYLAB 11/20/21 05:00 BMP - BASIC METABOLIC PANEL [CHEM] DAILYLAB CBC - COMP BLD CT W/AUTO DIFF [HEME] DAILYLAB Subjective - Subjective Patient Reports: Feeling Better, Resting Comfortably Objective Vital Signs: Vital Signs - 24 hr 11/16/21 11/16/21 11/17/21 15:47 23:30 07:41 Temperature 37.5 C 36.8 C 36.9 C Heart Rate [ 92 86 74 Brachial] Respiratory 24 16 18 Rate Blood Pressure 130/88 H 117/68 136/82 H [Right Brachial artery] O2 Saturation 97 95 98 Oxygen O2 Source Room air I&O (Last 24 Hrs): Intake and Output Totals x24h 11/15/21 11/16/21 11/17/21 23:59 23:59 23:59 Intake Total 3646.673 2924.334 1120 Output Total 1100 1400 325 Balance 2546.673 1524.334 795 General: Alert, Oriented x3, Cooperative, No acute distress HEENT: Atraumatic Neck: Supple Lymphatic: no adenopathy Neuro: Alert, Non Focal, Oriented Times 3 Cardiovascular: Regular rate, Normal S1, Normal S2 Respiratory: Chest non-tender, No respiratory distress Abdomen: Normal bowel sounds, Soft Extremities: Normal pulses - Results Results: Laboratory Results WBC 8.2 x10^3/uL (4.8-10.8) 11/17/21 05:23 RBC 3.84 10^6/uL (4.70-6.10) L 11/17/21 05:23 Hgb 11.7 g/dL (14.0-18.0) L 11/17/21 05:23 Hct 33.9 % (42.0-52.0) L 11/17/21 05:23 MCV 88.3 fL (80.0-94.0) 11/17/21 05:23 MCH 30.5 pg (27.0-31.0) 11/17/21 05:23 MCHC 34.5 g/dL (32.0-36.0) 11/17/21 05:23 RDW 11.9 % (12.0-15.0) L 11/17/21 05:23 Plt Count 127 10^3/uL (130-450) L 11/17/21 05:23 MPV 11.3 fL (7.4-11.4) 11/17/21 05:23 Neut # (Auto) 6.6 10^3/uL (1.5-6.6) 11/17/21 05:23 Lymph # (Auto) 1.1 10^3/uL (1.5-3.5) L 11/17/21 05:23 [place] # (Auto) 0.5 10^3/uL (0.0-1.0) 11/17/21 05:23 Eos # (Auto) 0.1 10^3/uL (0.0-0.7) 11/17/21 05:23 Baso # (Auto) 0.0 10^3/uL (0.0-0.1) 11/17/21 05:23 Absolute Nucleated RBC 0.00 x10^3/uL 11/17/21 05:23 Nucleated RBC % 0.0 /100WBC 11/17/21 05:23 Sodium 134 mmol/L (135-145) L 11/17/21 05:23 Potassium 3.8 mmol/L (3.5-5.0) 11/17/21 05:23 Chloride 102 mmol/L (101-111) 11/17/21 05:23 Carbon Dioxide 24 mmol/L (21-32) 11/17/21 05:23 Anion Gap 8.0 (6-13) 11/17/21 05:23 BUN 13 mg/dL (6-20) 11/17/21 05:23 Creatinine 0.9 mg/dL (0.6-1.2) 11/17/21 05:23 Estimated GFR (MDRD) 86 (>89) L 11/17/21 05:23 Glucose 115 mg/dL (70-100) H 11/17/21 05:23 Lactic Acid 1.4 mmol/L (0.5-2.2) 11/15/21 06:15 Calcium 8.3 mg/dL (8.5-10.3) L 11/17/21 05:23 Total Bilirubin 1.1 mg/dL (0.2-1.0) H 11/15/21 03:31 AST 22 IU/L (10-42) 11/15/21 03:31 ALT 34 IU/L (10-60) 11/15/21 03:31 Alkaline Phosphatase 60 IU/L (42-121) 11/15/21 03:31 Total Protein 6.8 g/dL (6.7-8.2) 11/15/21 03:31 Albumin 3.8 g/dL (3.2-5.5) 11/15/21 03:31 Globulin 3.0 g/dL (2.1-4.2) 11/15/21 03:31 Albumin/Globulin Ratio 1.3 (1.0-2.2) 11/15/21 03:31 Lipase 32 U/L (22-51) 11/15/21 03:31 Urine Color YELLOW 11/15/21 03:40 Urine Clarity CLEAR (CLEAR) 11/15/21 03:40 Urine pH 5.5 PH (5.0-7.5) 11/15/21 03:40 Ur Specific [place] 1.025 (1.002-1.030) 11/15/21 03:40 Urine Protein 30 mg/dL (NEGATIVE) H 11/15/21 03:40 Urine Glucose (UA) NEGATIVE mg/dL (NEGATIVE) 11/15/21 03:40 Urine Ketones NEGATIVE mg/dL (NEGATIVE) 11/15/21 03:40 Urine Occult Blood SMALL (NEGATIVE) H 11/15/21 03:40 Urine Nitrite NEGATIVE (NEGATIVE) 11/15/21 03:40 Urine Bilirubin NEGATIVE (NEGATIVE) 11/15/21 03:40 Urine Urobilinogen 0.2 (NORMAL) E.U./dL (NORMAL) 11/15/21 03:40 Ur Leukocyte Esterase NEGATIVE (NEGATIVE) 11/15/21 03:40 Urine RBC 0-5 /HPF (0-5) 11/15/21 03:40 Urine WBC 0-3 /HPF (0-3) 11/15/21 03:40 Ur Squamous Epith Cells RARE Squamous (<= Few) 11/15/21 03:40 Urine Bacteria None Seen /HPF (None Seen) 11/15/21 03:40 Ur Microscopic Review INDICATED 11/15/21 03:40 Urine Culture Comments NOT INDICATED 11/15/21 03:40 Nasal Adenovirus (PCR) NOT DETECTED 11/15/21 06:19 Nasal B. parapertussis DNA (PCR) NOT DETECTED 11/15/21 06:19 Nasal Coronavir 229E PCR NOT DETECTED 11/15/21 06:19 Nasal Coronavir HKU1 PCR NOT DETECTED 11/15/21 06:19 Nasal Coronavir NL63 PCR NOT DETECTED 11/15/21 06:19 Nasal Coronavir OC43 PCR NOT DETECTED 11/15/21 06:19 Nasal Enterovir/Rhinovir PCR NOT DETECTED 11/15/21 06:19 Nasal Influenza B PCR NOT DETECTED 11/15/21 06:19 Nasal Influenza A PCR NOT DETECTED 11/15/21 06:19 Nasal Parainfluen 1 PCR NOT DETECTED 11/15/21 06:19 Nasal Parainfluen 2 PCR NOT DETECTED 11/15/21 06:19 Nasal Parainfluen 3 PCR NOT DETECTED 11/15/21 06:19 Nasal Parainfluen 4 PCR NOT DETECTED 11/15/21 06:19 Nasal RSV (PCR) NOT DETECTED 11/15/21 06:19 Nasal B.pertussis DNA PCR NOT DETECTED 11/15/21 06:19 Nasal C.pneumoniae (PCR) NOT DETECTED 11/15/21 06:19 [place] Human Metapneumo PCR NOT DETECTED 11/15/21 06:19 Nasal M.pneumoniae (PCR) NOT DETECTED 11/15/21 06:19 Nasal SARS-CoV-2 (PCR) NOT DETECTED 11/15/21 06:19 - Procedures Procedures: Procedures ENDOSC POLYPECTOMY OF LG INTEST (04/21/13) EXCISION OF DESCENDING COLON, ENDO, DIAGN (03/28/18) EXCISION OF RECTUM, ENDO, DIAGN (03/28/18) ROTATOR CUFF REPAIR (06/11/13) ABX Reporting Has patient been on IV antibiotics over the past 48 hours?: Yes Current Medications - Current Medications Current Medications: Active Medications Acetaminophen (Acetaminophen 325 Mg Tablet) 650 mg PO Q4HR PRN PRN Reason: Pain 1 to 4 Enoxaparin Sodium (Enoxaparin 40 Mg/0.4 Ml Syringe) 40 mg SUBQ DAILY [facility] Last Admin: 11/16/21 08:22 Dose: 40 mg Hydromorphone HCl (Hydromorphone 1 Mg/Ml Carpuject) 1 mg IVP Q2HR PRN PRN Reason: PAIN Last Admin: 11/16/21 22:01 Dose: 1 mg Piperacillin Sod/Tazobactam (Sod 3.375 gm/ Sodium Chloride) 100 mls @ 25 mls/hr IV Q8H [facility] Last Infusion: 11/17/21 06:29 Dose: Infused Potassium Chloride/Dextrose/Sod Cl (D5.45ns W/20 Meq Kcl) 1,000 mls @ 100 mls/hr IV .Q10H [facility] Last Admin: 11/17/21 06:21 Dose: 100 mls/hr Ondansetron HCl (Ondansetron 4 Mg/2 Ml Vial) 4 mg IVP Q6HR PRN PRN Reason: Nausea / Vomiting Last Admin: 11/17/21 00:28 Dose: 4 mg Sodium Chloride (Sodium Chloride Flush 0.9% 10 Ml Syringe) 10 ml IVP PRN PRN PRN Reason: NEEDED PER PROVIDER ORDERS Last Admin: 11/16/21 19:01 Dose: 10 ml Sodium Chloride (Sodium Chloride Flush 0.9% 10 Ml Syringe) 10 ml IVP 0100,0900,1700 [facility] Last Admin: 11/16/21 23:27 Dose: Not Given No Known Home Medications 11/15/21
[2021-11-17] MEDS: ENOXAPARIN 40 MG/0.4 ML SYRINGE SUBQ SCH (11:14)
[2021-11-17] MEDS: SODIUM CHLORIDE FLUSH 0.9% 10 ML SYRINGE IVP SCH ×2 (11:14→17:14)
--- NOTE | 2021-11-17 13:47 | PROVIDER PROGRESS NOTE ---
Subjective - Prog Note Date Prog Note Date: 11/17/21 - Subjective Pt reports feeling: Improved (passing gas. no abdominal pain) Objective - Vital Signs/Intake & Output Vital Signs: Vital Signs x48h Temp Pulse Resp BP Pulse Ox 11/17/21 07:41 36.9 C 74 18 136/82 H 98 Intake & Output: Intake & Output 11/14/21 11/15/21 11/16/21 11/17/21 23:59 23:59 23:59 23:59 Intake Total 3646.673 2924.334 1320 Output Total 1100 1400 325 Balance 2546.673 1524.334 995 - Objective General Appearance: positive: No acute distress, Alert ENT: positive: No signs of dehydration Neck: positive: No JVD Respiratory: positive: No respiratory distress Abdomen: positive: Non-tender, No distention - Lab Results Fish Bones: 11/17/21 05:23 11/17/21 05:23 Other Labs: Lab Results x24hrs 11/17/21 11/17/21 Range/Units 05:23 05:23 WBC 8.2 (4.8-10.8) x10^3/uL RBC 3.84 L (4.70-6.10) 10^6/uL Hgb 11.7 L (14.0-18.0) g/dL Hct 33.9 L (42.0-52.0) % MCV 88.3 (80.0-94.0) fL MCH 30.5 (27.0-31.0) pg MCHC 34.5 (32.0-36.0) g/dL RDW 11.9 L (12.0-15.0) % Plt Count 127 L (130-450) 10^3/uL MPV 11.3 (7.4-11.4) fL Neut # (Auto) 6.6 (1.5-6.6) 10^3/uL Lymph # (Auto) 1.1 L (1.5-3.5) 10^3/uL [place] # (Auto) 0.5 (0.0-1.0) 10^3/uL Eos # (Auto) 0.1 (0.0-0.7) 10^3/uL Baso # (Auto) 0.0 (0.0-0.1) 10^3/uL Absolute Nucleated RBC 0.00 x10^3/uL Nucleated RBC % 0.0 /100WBC Sodium 134 L (135-145) mmol/L Potassium 3.8 (3.5-5.0) mmol/L Chloride 102 (101-111) mmol/L Carbon Dioxide 24 (21-32) mmol/L Anion Gap 8.0 (6-13) BUN 13 (6-20) mg/dL Creatinine 0.9 (0.6-1.2) mg/dL Estimated GFR (MDRD) 86 L (>89) Glucose 115 H (70-100) mg/dL Calcium 8.3 L (8.5-10.3) mg/dL Assessment/Plan - Problem List (1) Diverticulitis Impression: improving daily agree with starting clears as tolerated.
[2021-11-17] MEDS: SODIUM CHLORIDE FLUSH 0.9% 10 ML SYRINGE IVP PRN (19:06)
[2021-11-18] MEDS: D5.45NS W/20 MEQ KCL 1,000 ML IV SCH (02:14)
[2021-11-18] MEDS: SODIUM CHLORIDE FLUSH 0.9% 10 ML SYRINGE IVP SCH ×3 (02:15→16:19)
[2021-11-18] MEDS: PIPERACILLIN/TAZOBACTAM 3.375 GM in SODIUM CHLORIDE 0.9% MINIBAG 100 ML IV SCH ×2 (02:16→10:00)
[2021-11-18 06:55] LABS: BASOPHILS % (AUTO) 0.5 %; EOSINOPHILS # (AUTO) 0.3 10^3/uL (0.0-0.7); EOSINOPHILS % (AUTO) 4.3 %; HCT - HEMATOCRIT 32.6 % (42.0-52.0); HGB - HEMOGLOBIN 11.7 g/dL (14.0-18.0); LYMPHOCYTES # (AUTO) 0.9 10^3/uL (1.5-3.5); LYMPHOCYTES % (AUTO) 15.9 %; MEAN CORPUSCULAR HEMOGLOBIN 30.7 pg (27.0-31.0); MEAN CORPUSCULAR HGB CONC 35.9 g/dL (32.0-36.0); MEAN CORPUSCULAR VOLUME 85.6 fL (80.0-94.0); MEAN PLATELET VOLUME 10.7 fL (7.4-11.4); MONOCYTES # (AUTO) 0.4 10^3/uL (0.0-1.0); MONOCYTES % (AUTO) 7.3 %; NEUTROPHILS # (AUTO) 4.1 10^3/uL (1.5-6.6); NEUTROPHILS % (AUTO) 71.8 %; PLT - PLATELET COUNT 141 10^3/uL (130-450); RED BLOOD COUNT 3.81 10^6/uL (4.70-6.10); RED CELL DISTRIBUTION WIDTH 11.7 % (12.0-15.0); WHITE BLOOD COUNT 5.8 x10^3/uL (4.8-10.8)
[2021-11-18 07:01] LABS: CALCIUM 8.5 mg/dL (8.5-10.3); POTASSIUM 3.7 mmol/L (3.5-5.0)
[2021-11-18] MEDS: ENOXAPARIN 40 MG/0.4 ML SYRINGE SUBQ SCH (10:00)
--- NOTE | 2021-11-18 13:01 | PROVIDER PROGRESS NOTE ---
Subjective - General Admit Date: 11/15/21 - Review of Systems General: positive: No symptoms. negative: Fever HEENT: positive: Headaches Pulmonary: positive: No symptoms Cardiovascular: positive: No symptoms Gastrointestinal: positive: Abdominal pain, Flatus, Other Genitourinary: positive: No symptoms All Other Systems: positive: Reviewed and negative - Other Other Information/Narrative: Tolerating a clear diet and having multiple liquid bowel movements. shirring tender in the left lower quadrant but greatly improved. No nausea. Diet advanced this AM. Objective - Patient Data Vital Signs: Vital Signs x48h Temp Pulse Resp BP Pulse Ox 11/18/21 07:26 36.7 C 61 16 129/84 H 95 Intake & Output: Intake and Output Totals x24h 11/16/21 11/17/21 11/18/21 23:59 23:59 23:59 Intake Total 2924.334 3731.667 2253.333 Output Total 1400 1125 Balance 6630.869 5145.667 2253.333 - Lab Results Lab Results: 11/18/21 06:38 11/18/21 06:38 Other Lab Results: Lab Results x24hrs 11/18/21 11/18/21 Range/Units 06:38 06:38 WBC 5.8 (4.8-10.8) x10^3/uL RBC 3.81 L (4.70-6.10) 10^6/uL Hgb 11.7 L (14.0-18.0) g/dL Hct 32.6 L (42.0-52.0) % MCV 85.6 (80.0-94.0) fL MCH 30.7 (27.0-31.0) pg MCHC 35.9 (32.0-36.0) g/dL RDW 11.7 L (12.0-15.0) % Plt Count 141 (130-450) 10^3/uL MPV 10.7 (7.4-11.4) fL Neut # (Auto) 4.1 (1.5-6.6) 10^3/uL Lymph # (Auto) 0.9 L (1.5-3.5) 10^3/uL [place] # (Auto) 0.4 (0.0-1.0) 10^3/uL Eos # (Auto) 0.3 (0.0-0.7) 10^3/uL Baso # (Auto) 0.0 (0.0-0.1) 10^3/uL Absolute Nucleated RBC 0.00 x10^3/uL Nucleated RBC % 0.0 /100WBC Sodium 138 (135-145) mmol/L Potassium 3.7 (3.5-5.0) mmol/L Chloride 105 (101-111) mmol/L Carbon Dioxide 25 (21-32) mmol/L Anion Gap 8.0 (6-13) BUN 9 (6-20) mg/dL Creatinine 1.0 (0.6-1.2) mg/dL Estimated GFR (MDRD) 76 L (>89) Glucose 116 H (70-100) mg/dL Calcium 8.5 (8.5-10.3) mg/dL - Current Medications Current Medications: Current Medications Generic Name Dose Route Start Last Admin Trade Name Freq PRN Reason Stop Dose Admin Enoxaparin Sodium 40 mg 11/16/21 09:00 11/18/21 10:00 Enoxaparin 40 Mg/0.4 Ml Syringe SUBQ 40 mg DAILY NAUN Administration Hydromorphone HCl 1 mg 11/15/21 06:53 11/16/21 22:01 Hydromorphone 1 Mg/Ml Carpuject IVP 1 mg Q2HR PRN Administration PAIN Piperacillin Sod/Tazobactam 100 mls @ 25 mls/hr 11/15/21 18:00 11/18/21 10:00 Sod 3.375 gm/ Sodium Chloride IV 25 mls/hr Q8H NAUN Administration Ondansetron HCl 4 mg 11/15/21 07:27 11/17/21 00:28 Ondansetron 4 Mg/2 Ml Vial IVP 4 mg Q6HR PRN Administration Nausea / Vomiting Sodium Chloride 10 ml 11/15/21 07:27 11/17/21 19:06 Sodium Chloride Flush 0.9% 10 Ml Syringe IVP 10 ml PRN PRN Administration NEEDED PER PROVIDER ORDERS Sodium Chloride 10 ml 11/15/21 09:00 11/18/21 10:01 Sodium Chloride Flush 0.9% 10 Ml Syringe IVP 10 ml 0100,0900,1700 NAUN Administration - Physical Exam General Appearance: positive: No acute distress, Alert Eyes Bilateral: positive: Normal inspection Abdomen: positive: Nml bowel sounds, No distention, Tenderness Skin: positive: Color nml Neurologic/Psychiatric: positive: Oriented x3 ABX Reporting Has patient been on IV antibiotics over the past 48 hours?: Yes Impression/Plan - Problem List Problem List: Acute diverticulitis with limited perforation. 1. Recovering well 2. Continue antibiotic for a full 10 day course but could change to po 3. Check stool for c. diff 4. Agree with advanced diet 5. Will need repeat colonoscopy in 2-3 months
[2021-11-18] MEDS ORDERED: SACCHAROMYCES BOULARDII 250 MG CAPSULE PO SCH ×2 (13:06→17:00)
[2021-11-18] MEDS ORDERED: LACTOBACILLUS RHAMNOSUS GG CAPSULE PO SCH (13:08)
--- NOTE | 2021-11-18 17:29 | Discharge Plan ---
Discharge Plan Problem Reviewed?: Yes Disposition: Home, Self Care Condition: Stable Prescriptions: Ciprofloxacin HCl [Cipro] 500 mg PO BID #14 tablet Lactobacillus Rhamnosus GG [Culturelle] 1 cap PO DAILY #7 cap metroNIDAZOLE [Flagyl] 500 mg PO TID #21 tablet Diet: Regular Activity Restrictions: Activity as Tolerated Shower Restrictions: No (fall precaution) Instruction Topics: Metronidazole tablets or capsules, Ciprofloxacin tablets, ED Diverticulitis Health Concerns: diverticulitis Plan of Treatment: you tolerated diet and your abdominal pain is controlled. you have no more diarrhea. You are prescribed antibiotics Cipro and Flagyl to finish the treatment course, you are also prescribed probiotics. Care Goals: Stabilization and resolve/improvement of your medical issue Assessment: Discussed the care plan with you, answered your questions, you understood Additional Instructions or Follow Up instructions: You may follow-up with your PCP in 1 to 2 weeks. You may repeat colonoscopy in 2-3 months. Should your symptoms return or worsen, you may present to the ER or call 911 for help No Smoking: If you smoke, Please STOP! Call for help.
--- NOTE | 2021-11-18 17:37 | DISCHARGE SUMMARY ---
"Discharge Summary Admit Date: 11/15/21 Discharge Date: 11/18/21 Discharging Provider: Shawn Atkins Primary Care Provider: Odette Quinones Condition at Discharge: Stable Discharge Disposition: 01 Home, Self Care Discharge Facility Name: home - DIAGNOSES Discharge Diagnoses with Status of Each Condition: (1) Diverticulitis pt tolerated regular diet without nausea, vomiting and abdominal pain. pt also had bowel movements. pt has no more diarrhea. pt is prescribed antibiotics to finish the treatment course and probiotics as well. - HPI History of Present Illness: this a 61-yrs old male with a past medical history significant for HTN, HLD, colon polyps, kidney stones who presents ER to complain of abdominal pain. Pt arrives via EMS. He report he felt some discomfort on his low quadrant abdomen on yesterday afternoon when he was at work. 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 he report he almost passed out because of pain. Then he sit at the floor but he had no fall and no injury. he Reports diaphoresis, nausea, and light headedness with abdominal pain without vomiting. He reported his abdominal pain mainly located at the left lower quadrant. He denies fever, chest pain, shortness of breath. After Pt was given 50mcg fentanyl X 2 en route to hospital, and given pain medication at ER, he felt his pain was reduced. Preliminary CT of abdomen/pelvis reveals Sigmoid Diverticulitis with microperforation and reactive inflammation change with a trace reactive free fluid, negative for abscess at this junction. Surgeon was consulted and recommended Medical management with NPO, IV fluids, pain control, and recommended Zosyn antibiotics. Given above medical conditions, Medical team was consulted for admission. discussed the care goal with pt, pt hope to have full code - CONSULTS | PROCEDURES Consultations: Dr. Clark Procedures: no surgery - ALLERGIES Allergies/Adverse Reactions: Allergies Allergy/AdvReac Type Severity Reaction Status Date / Time Egg Derived AdvReac Nausea Verified 05/30/21 12:41 - MEDICATIONS Home Medications: Ambulatory Orders Medication Instructions Recorded Confirmed Ciprofloxacin HCl [Cipro] 500 mg PO BID #14 tablet 11/18/21 Lactobacillus Rhamnosus GG 1 cap PO DAILY #7 cap 11/18/21 [Culturelle] metroNIDAZOLE [Flagyl] 500 mg PO TID #21 tablet 11/18/21 - PHYSICAL EXAM AT DISCHARGE General Appearance: positive: No acute distress, Alert. negative: Lethargic Eyes Bilateral: positive: Normal inspection, No lid inflammation ENT: positive: ENT inspection nml, No signs of dehydration. negative: Purulent nasal drainage Neck: positive: Nml inspection, Trachea midline. negative: Tracheal deviation Respiratory: positive: Chest non-tender, No respiratory distress, Breath sounds nml. negative: Wheezes, Rales Cardiovascular: positive: Regular rate & rhythm, No murmur. negative: Tachycardia, Bradycardia, Systolic murmur, Diastolic murmur Peripheral Pulses: positive: 2+ Abdomen: positive: Non-tender, Nml bowel sounds, No distention. negative: Tenderness Back: positive: Nml inspection Skin: positive: Color nml, Warm, Dry. negative: Cyanosis Extremities: positive: Non-tender, Full ROM, Nml appearance Neurologic/Psychiatric: positive: Oriented x3, Motor nml, Sensation nml. negative: Weakness, Sensory loss, Facial droop, Slurred/abnml speech, Depressed mood/affect - LABS Result Diagrams: 11/18/21 06:38 11/18/21 06:38 - FOLLOW UP Follow Up: you tolerated diet and your abdominal pain is controlled. you have no more diarrhea. You are prescribed antibiotics Cipro and Flagyl to finish the treatment course, you are also prescribed probiotics. You may follow-up with your PCP in 1 to 2 weeks. You may repeat colonoscopy in 2-3 months. Should your symptoms return or worsen, you may present to the ER or call 911 for help - TIME SPENT Time Spent in Discharge (Minutes): 30"
[2021-11-18 19:12] VITALS: BP 148/84
== END 2021-11-18 18:55 | disposition home or self-care (01) | DRG 392 ==
LOC: EDSEX → ED 02:55 → MS2 06:50
PROVIDERS: ADMIT Nurse Practitioner Gerontology; ATTEND Nurse Practitioner Gerontology
DX: K57.20 Diverticulitis of large intestine with perforation and abscess without bleeding (principal); I10 Essential (primary) hypertension; E78.5 Hyperlipidemia, unspecified; Z86.010 Personal history of colon polyps; Z87.442 Personal history of urinary calculi; E66.9 Obesity, unspecified; Z68.34 Body mass index [BMI] 34.0-34.9, adult; Z20.822 Contact with and (suspected) exposure to COVID-19
CPT/HCPCS: 0202U; 36415; 74177; 80048; 80053; 81001; 83605; 83690; 85025; 87040; 96361; 96365; 96375; 99284; 99285; A9270; J1170; J1650; Q9967; 81003; 87086

== ENCOUNTER 2022-05-05 17:15 | Emergency (ER) | payer OTHER ==
[2022-05-05 17:42] LABS: BASOPHILS % (AUTO) 0.2 %; EOSINOPHILS # (AUTO) 0.1 10^3/uL (0.0-0.7); EOSINOPHILS % (AUTO) 1.1 %; HCT - HEMATOCRIT 42.4 % (42.0-52.0); HGB - HEMOGLOBIN 14.9 g/dL (14.0-18.0); LYMPHOCYTES # (AUTO) 0.9 10^3/uL (1.5-3.5); LYMPHOCYTES % (AUTO) 7.5 %; MEAN CORPUSCULAR HEMOGLOBIN 30.5 pg (27.0-31.0); MEAN CORPUSCULAR HGB CONC 35.1 g/dL (32.0-36.0); MEAN CORPUSCULAR VOLUME 86.9 fL (80.0-94.0); MEAN PLATELET VOLUME 10.6 fL (7.4-11.4); MONOCYTES # (AUTO) 0.6 10^3/uL (0.0-1.0); MONOCYTES % (AUTO) 4.5 %; NEUTROPHILS # (AUTO) 10.7 10^3/uL (1.5-6.6); NEUTROPHILS % (AUTO) 86.5 %; PLT - PLATELET COUNT 149 10^3/uL (130-450); RED BLOOD COUNT 4.88 10^6/uL (4.70-6.10); RED CELL DISTRIBUTION WIDTH 11.9 % (12.0-15.0); WHITE BLOOD COUNT 12.4 x10^3/uL (4.8-10.8)
[2022-05-05 17:48] LABS: BILIRUBIN,URINE NEGATIVE (NEGATIVE); GLUCOSE, URINE (UA) NEGATIVE (NEGATIVE); KETONES,URINE (UA) TRACE mg/dL (NEGATIVE); LEUKOCYTE ESTERASE, URINE NEGATIVE (NEGATIVE); NITRITE,URINE NEGATIVE (NEGATIVE); OCCULT BLOOD,URINE TRACE-INTA (NEGATIVE); PH,URINE 5.5 PH (5.0-7.5); PROTEIN,URINE TRACE mg/dL (NEGATIVE); UROBILINOGEN,URINE 0.2 (NORMAL) E.U./dL (NORMAL)
[2022-05-05 17:50] LABS: CLARITY,URINE CLEAR (CLEAR)
[2022-05-05 17:55] LABS: ALBUMIN 4.2 g/dL (3.2-5.5); ALBUMIN/GLOBULIN RATIO 1.4 (1.0-2.2); BILIRUBIN,TOTAL 1.1 mg/dL (0.2-1.0); CREATININE 1.1 mg/dL (0.6-1.2); POTASSIUM 4.3 mmol/L (3.5-5.0); TOTAL PROTEIN 7.3 g/dL (6.7-8.2)
--- NOTE | 2022-05-05 19:54 | ED Physician Documentation ---
PD HPI ABD PAIN - Stated complaint Stated Complaint: STOMACH PX/NAUSEA - Chief complaint Chief Complaint: Abd Pain - History obtained from History obtained from: Patient - Additional information Additional information: Patient is a 62-year-old male with a history of diverticulitis and microperforation presenting for evaluation of lower abdominal pain that started at 11 AM. Initially felt sharp discomfort in the left lower quadrant but it has since Moved to bilateral lower quadrants and he has associated nausea. He denies vomiting. He was admitted in November with diverticulitis and microperforation for IV antibiotic therapy. He did not require IR drainage or surgery. He has had a previous abdominal hernia surgery. He denies diarrhea. He denies fever, chest pain or difficulty breathing. Nothing makes his pain better or worse. At times the pain is sharp but otherwise it feels dull and throbbing. He does not have pain to the back.He denies dysuria. Review of Systems Nose: denies: Congestion Throat: denies: Sore throat Respiratory: denies: Dyspnea, Cough GI: reports: Abdominal Pain, Nausea. denies: Vomiting, Diarrhea : denies: Dysuria Skin: denies: Rash PD PAST MEDICAL HISTORY - Past Medical History Cardiovascular: Hypertension, High cholesterol Respiratory: None Neuro: None Endocrine/Autoimmune: None GI: GERD, Colon polyps : None HEENT: None Psych: None Musculoskeletal: None Derm: None - Past Surgical History Past Surgical History: Yes General: Colonoscopy (multiple polyps found), Other (open inguinal hernia repair) Ortho: Rotator cuff repair - Present Medications Home Medications: Ambulatory Orders Medication Instructions Recorded Confirmed Amox/Clav 875/125 [Augmentin] 1 each PO Q12H #20 tablet 05/05/22 Ondansetron Odt [Zofran] 4 mg TL Q6H PRN #10 tablet 05/05/22 Oxycodone HCl/Acetaminophen 1 each PO Q6H PRN #14 tablet 05/05/22 [Percocet 5-325 mg Tablet] - Allergies Allergies/Adverse Reactions: Allergies Allergy/AdvReac Type Severity Reaction Status Date / Time Egg Derived AdvReac Nausea Verified 05/05/22 17:21 - Social History Does the pt smoke?: No Smoking Status: Never smoker Does the pt drink ETOH?: No Does the pt have substance abuse?: No - Immunizations Immunizations are current?: No Immunizations: TDAP >10years/unknown - POLST Patient has POLST: No PD ED PE NORMAL - General General: Alert and oriented X 3, No acute distress, Well developed/nourished - HEENT HEENT: Atraumatic, Moist mucous membranes - Neck Neck: Supple, no meningeal sign - Cardiac Cardiac: RRR, No murmur, Strong equal pulses - Respiratory Respiratory: No respiratory distress, Clear bilaterally - Abdomen Abdomen: Normal bowel sounds, Soft, Non distended, Other (Lower abdominal tenderness to palpation, no rebound, no guarding, protuberant abdomen) - Back Back: No CVA TTP - Derm Derm: Warm and dry - Extremities Extremities: No edema - Neuro Neuro: Normal speech - Psych Psych: Normal mood Results - Vitals Vitals: Vital Signs - 24 hr 05/05/22 05/05/22 05/05/22 17:23 21:02 22:45 Temperature 37.2 C 36.5 C Heart Rate 92 83 80 Respiratory 18 16 16 Rate Blood Pressure 156/95 H 134/82 H 130/80 O2 Saturation 97 94 96 Oxygen O2 Source Room air - Labs Labs: Laboratory Tests 05/05/22 05/05/22 05/05/22 17:37 17:37 17:40 WBC 12.4 H RBC 4.88 Hgb 14.9 Hct 42.4 MCV 86.9 MCH 30.5 MCHC 35.1 RDW 11.9 L Plt Count 149 MPV 10.6 Neut # (Auto) 10.7 H Lymph # (Auto) 0.9 L [place] # (Auto) 0.6 Eos # (Auto) 0.1 Baso # (Auto) 0.0 Absolute Nucleated RBC 0.00 Nucleated RBC % 0.0 Sodium 133 L Potassium 4.3 Chloride 98 L Carbon Dioxide 25 Anion Gap 10.0 BUN 18 Creatinine 1.1 Estimated GFR (MDRD) 68 L Glucose 131 H Calcium 9.0 Total Bilirubin 1.1 H AST 34 ALT 47 Alkaline Phosphatase 83 Total Protein 7.3 Albumin 4.2 Globulin 3.1 Albumin/Globulin Ratio 1.4 Lipase 38 Urine Color YELLOW Urine Clarity CLEAR Urine pH 5.5 Ur Specific [place] >=1.030 H Urine Protein TRACE Urine Glucose (UA) NEGATIVE Urine Ketones TRACE Urine Occult Blood TRACE-INTA Urine Nitrite NEGATIVE Urine Bilirubin NEGATIVE Urine Urobilinogen 0.2 (NORMAL) Ur Leukocyte Esterase NEGATIVE Ur Microscopic Review NOT INDICATED Urine Culture Comments NOT INDICATED PD MEDICAL DECISION MAKING - ED course Complexity details: reviewed results, re-evaluated patient, d/w patient, d/w family ED course: Patient presenting for evaluation of lower abdominal pain. Labs reviewed without significant abnormalities. A CT scan with diverticulitis. Pain is well controlled and no signs of abscess or perforation. Patient is comfortable with plan for outpatient treatment. He is aware of strict return precautions for any worsening symptoms. is at bedside and also present for conversation. He is planning on scheduling a colonoscopy soon. He is advised on radiologist recommendation for colonoscopy as well. Due to global and hospital shortage of IV contrast related to Covid [address] pandemic, [address] scan ordered without contrast. Departure - Departure Disposition: Home, Self Care Clinical Impression: Acute diverticulitis Condition: Stable Instructions: ED Diverticulitis Prescriptions: Amox/Clav 875/125 [Augmentin] 1 each PO Q12H #20 tablet Oxycodone HCl/Acetaminophen [Percocet 5-325 mg Tablet] 1 each PO Q6H PRN #14 tablet PRN Reason: pain Ondansetron Odt [Zofran] 4 mg TL Q6H PRN #10 tablet PRN Reason: Nausea / Vomiting Comments: You were evaluated for pain to your lower abdomen and found to have diverticulitis. Your labs were overall reassuring and your pain has improved with medication here. This time there were no signs of an abscess or perforation and you are able to go home with oral antibiotics, pain medication and nausea medication. I have sent prescriptions to [facility] in [place]. Please continue follow-up with your primary care doctor as you likely need a colonoscopy as an outpatient to make sure you do not have signs of colon cancer. If it anytime you have worsening symptoms such as fever, increased pain or vomiting please return to the emergency department. I am prescribing a short course of narcotic pain medication for you. These are potentially dangerous and addictive medications that should be used carefully. These medications may constipate you. Take an [id number] stool softener (docusate) twice daily with plenty of water while taking these medications. If you go 24 hours without a bowel movement, take [id number] miralax, per package instructions. Do not drink or drive while taking these medications. If you received narcotic or sedating medications while in the emergency department, do not drive for 24 hours. Store this medication in a safe, secure place and out of reach of children. It is a violation of federal law to give or sell this medication to another person or to use in a manner other than prescribed. The ED will not refill narcotic prescriptions, including prescriptions lost or stolen. To dispose of unwanted medications: 1. [facility] at [address] in [place] has a medication drop box. They accept prescription medications (in pill form) Saturday through Saturday 9:00 a.m. to 5:00 p.m. 2. The [facility] accepts prescription medications (in pill form only) for disposal year round. Call for more information. 3. Contact the [facility] for the next [facility] sponsored prescription drug collection event. , [phone], or [phone]; Note that many narcotic pain relievers also contain Tylenol/acetaminophen. Please ensure that your total dose of acetaminophen from all sources does not exceed 3 g (3000 mg) per day. Forms: Activity restrictions Discharge Date/Time: 05/05/22 22:45
[2022-05-05] MEDS: SODIUM CHLORIDE 0.9% 1,000 ML IV STA (21:06)
[2022-05-05] MEDS: ONDANSETRON 4 MG/2 ML VIAL IVP STA (21:06)
[2022-05-05] MEDS: MORPHINE 2 MG/ML CARPUJECT IVP STA (21:07)
--- NOTE | 2022-05-05 21:14 | CT Report ---
PROCEDURE: Abdomen/Pelvis WO INDICATIONS: lower abd pain TECHNIQUE: Noncontrast 5 mm thick sections acquired from the diaphragms to the symphysis. 5 mm coronal and sagi ttal reformats were then performed. For radiation dose reduction, the following was used: automated exposure control, adjustment of mA and/or kV according to patient size. COMPARISON: CT abdomen and pelvis with contrast, 11/15/2021. FINDINGS: Image quality: Excellent. ABDOMEN: Lung bases: Bibasilar atelectasis. Heart size is normal. Mild coronary artery calcification. Small hiatal hernia. Solid organs: Liver and spleen are normal in size. There are multiple indeterminate low-density nod ules in liver, probably cysts. Hepatic steatosis. Gallbladder is normal Pancreas is normal in contou rs. No adrenal nodules. Kidneys are normal in size, without hydronephrosis or nephrolithiasis. Peritoneum and bowel: Unenhanced bowel loops demonstrate normal caliber. There are numerous colonic diverticula. There is moderate focal thickening and prominent pericolonic stranding in sigmoid colon consistent with acute sigmoid diverticulitis. No free air. There is a small amount of free fluid in the left paracolic gutter. Nodes and vessels: No retroperitoneal or mesenteric adenopathy by size criteria. Aorta and inferior vena cava are normal in caliber. Miscellaneous: No ventral hernias. PELVIS: Genitourinary: Bladder wall thickness is normal. Prostate is prominent in size. Miscellaneous: No inguinal hernias or adenopathy. Bones: No suspicious bony lesions. No vertebral body compression fractures. IMPRESSION: 1. Colonic diverticulosis. There is acute sigmoid diverticulitis with moderate focal thickening of si gmoid colon and prominent pericolonic fat stranding. A small amount of free fluid is seen in the left paracolic gutter. No organized fluid collections to suggest abscess. No free air. 2. After adequate treatment of acute illness, a colonoscopy is suggested as colon cancer could have a similar CT appearance. 3. Small hiatal hernia. 4. Multiple indeterminate hepatic hypodensities, most likely cysts. If clinically indicated, ultrasou nd may be obtained. Reviewed by: Dominique Wright MD on 05/05/2022 9:12 PM PDT Approved by: Dominique Wright MD on 05/05/2022 9:12 PM PDT Station ID: [id number]
[2022-05-05] MEDS: AMOX/CLAV 875 MG/125 MG TABLET PO STA (22:11)
[2022-05-05] MEDS: ONDANSETRON ODT 4 MG Prepack 2 TL PRN (22:11)
[2022-05-05] MEDS: oxyCODONE/ACET 5/325 Prepack 4 PO STA (22:11)
[2022-05-05 22:46] VITALS: BP 130/80
== END 2022-05-05 22:45 | disposition home or self-care (01) ==
LOC: ED 17:15
DX: K57.32 Diverticulitis of large intestine without perforation or abscess without bleeding (principal)
CPT/HCPCS: 36415; 80053; 81001; 81003; 83690; 85025; 87086; 96374; 96375; 99284

== ENCOUNTER 2024-01-28 12:59 | Outpatient (CLI) | payer BC ==
[2024-01-28 14:57] LABS: BILIRUBIN,URINE NEGATIVE (NEGATIVE); GLUCOSE, URINE (UA) NEGATIVE (NEGATIVE); KETONES,URINE (UA) NEGATIVE (NEGATIVE); LEUKOCYTE ESTERASE, URINE NEGATIVE (NEGATIVE); NITRITE,URINE NEGATIVE (NEGATIVE); OCCULT BLOOD,URINE SMALL (NEGATIVE); PH,URINE 5.5 PH (5.0-7.5); PROTEIN,URINE TRACE mg/dL (NEGATIVE); UROBILINOGEN,URINE 0.2 (NORMAL) E.U./dL (NORMAL)
[2024-01-28 14:59] LABS: BASOPHILS % (AUTO) 0.3 %; EOSINOPHILS % (AUTO) 0.3 %; HCT - HEMATOCRIT 45.8 % (42.0-52.0); HGB - HEMOGLOBIN 15.7 g/dL (14.0-18.0); LYMPHOCYTES # (AUTO) 0.8 10^3/uL (1.5-3.5); LYMPHOCYTES % (AUTO) 26.7 %; MEAN CORPUSCULAR HEMOGLOBIN 29.8 pg (27.0-31.0); MEAN CORPUSCULAR HGB CONC 34.3 g/dL (32.0-36.0); MEAN CORPUSCULAR VOLUME 86.9 fL (80.0-94.0); MEAN PLATELET VOLUME 12.3 fL (7.4-11.4); MONOCYTES # (AUTO) 0.4 10^3/uL (0.0-1.0); MONOCYTES % (AUTO) 12.4 %; NEUTROPHILS # (AUTO) 1.9 10^3/uL (1.5-6.6); PLT - PLATELET COUNT 111 10^3/uL (130-450); RED BLOOD COUNT 5.27 10^6/uL (4.70-6.10); RED CELL DISTRIBUTION WIDTH 11.7 % (12.0-15.0); WHITE BLOOD COUNT 3.2 x10^3/uL (4.8-10.8)
[2024-01-28 15:02] LABS: CLARITY,URINE CLEAR (CLEAR)
[2024-01-28 15:09] LABS: BACTERIA,URINE None Seen /HPF (None Seen); RBC,URINE 0-5 /HPF (0-5); SQUAMOUS EPITHELIAL CELL,UR NONE SEEN (<= Few); WBC,URINE 0-3 /HPF (0-3)
[2024-01-28 15:43] LABS: ALBUMIN 4.4 g/dL (3.2-5.5); ALBUMIN/GLOBULIN RATIO 1.6 (1.0-2.2); BILIRUBIN,TOTAL 0.6 mg/dL (0.2-1.0); CALCIUM 9.5 mg/dL (8.5-10.3); CREATININE 1.2 mg/dL (0.6-1.3); POTASSIUM 3.7 mmol/L (3.5-4.5); TOTAL PROTEIN 7.2 g/dL (6.4-8.9)
== END 2024-01-28 13:00 | disposition home or self-care (01) ==
LOC: LAB.S 12:59
PROVIDERS: ATTEND Registered Nurse
DX: R63.0 Anorexia (principal); R39.11 Hesitancy of micturition; R10.9 Unspecified abdominal pain
CPT/HCPCS: 36415; 80053; 81001; 83690; 84153; 85025; 86140; 87086

== ENCOUNTER 2024-01-30 07:32 | Outpatient (CLI) | payer BC ==
[2024-01-30] MEDS ORDERED: iohexoL-300 150 ML BOTTLE ONE (07:36)
[2024-01-30] MEDS: iohexoL-300 150 ML BOTTLE IVP ONE (10:24)
--- NOTE | 2024-01-31 09:21 | CT Report ---
PROCEDURE: IVP INDICATIONS: HEMATURIA CONTRAST: Noncontrast study TECHNIQUE: Noncontrast CT of the abdomen and pelvis was obtained with coronal sagittal and axial reformats as pe r protocol. For radiation dose reduction, the following was used: automated exposure control, adjustm ent of convex left scoliosis. COMPARISON: CT abdomen 05/05/2022. FINDINGS: Image quality: Diagnostic. Urinary system: Both kidneys are normal in size. No hydronephrosis or nephrolithiasis. No solid mas ses or complex cysts seen on these limited noncontrast CT. Bladder wall thickness is unremarkable, ac counting for underdistention. No calcified bladder stones. OTHER Lower chest: Unremarkable. Liver: No solid mass. Nonspecific 1 cm hypodensities similar to prior study, limited evaluation with IV contrast. Gallbladder and biliary tree: No calcified gallstones seen. Gallbladder is decompressed and poorly ev aluated. Spleen: No splenomegaly. Pancreas: No pancreatic ductal dilation. Adrenals: No adrenal nodule. Kidneys and ureters: Both kidneys are normal in size. No hydronephrosis or nephrolithiasis . No prev ious solid masses or complex cysts seen on this limited noncontrast CT. Stomach, bowel and peritoneum: No bowel distension. No pathologic free fluid. Unremarkable appendix. Surgical staple line of the colon noted likely due to previous partial colectomy. Abdominal Lymph nodes: No central or retroperitoneal adenopathy. Vessels: Unremarkable. Reproductive organs: Unremarkable. Bladder: No gross abnormality seen. Bladder is only partially distended. Slightly enlarged prostate p rojecting into the base of the bladder. No stone seen. Pelvic Lymph nodes: Unremarkable. Bones: No aggressive osseous abnormality. L5-S1 degenerative disc disease with vacuum phenomena. Other: None. IMPRESSION: No renal stones or hydronephrosis. Slightly enlarged prostate projecting at the base of the bladder. Surgical suture line of the colon noted, new since prior CT on 05/23/2022 Degenerative disc disease at L5-S1 with vacuum phenomena Reviewed by: Quan Morrow MD on 01/31/2024 9:20 AM PDT Approved by: Quan Morrow MD on 01/31/2024 9:20 AM PDT Station ID: [id number]
== END 2024-01-30 07:33 | disposition home or self-care (01) ==
LOC: DI 07:32
PROVIDERS: ATTEND Registered Nurse
DX: N40.1 Benign prostatic hyperplasia with lower urinary tract symptoms (principal); R39.11 Hesitancy of micturition; R35.0 Frequency of micturition; R97.20 Elevated prostate specific antigen [PSA]; N39.0 Urinary tract infection, site not specified; M51.37 Other intervertebral disc degeneration, lumbosacral region
CPT/HCPCS: Q9967